=== PATIENT | female | born 1960 | race Caucasian/White ===

== ENCOUNTER 2020-04-16 13:57 | Outpatient (CLI) | payer MEDICARE, OTHER, SELFPAY ==
--- NOTE | ~2020-04-16 | CT_ITS ---
EXAMINATION: CTA brain DATE: 04/16/2020 15:11 INDICATION: Syncope and collapse. TECHNIQUE: Computed tomographic angiography (CTA) of the head was performed without and with 100 mL O mnipaque-350 intravenous contrast. Automated exposure control and iterative reconstruction technique were employed. The dose-length product was 1095.65 mGy-cm. Maximum intensity projection 3D reconstru ctions were created. Volume-rendered 3D reconstructions of the intracranial arteries were created by the technologist on a separate workstation. COMPARISON: None. FINDINGS: There is an old infarct in right frontal lobe. There is no intracranial hemorrhage, acute i nfarction, or abnormal intracranial mass lesion. The ventricles are normal in size. There is mild muc osal thickening in the paranasal sinuses. The mastoid air cells are normal. Left vertebral artery is dominant. There is no significant stenosis of basilar artery or the posterior cerebral arteries. Ther e is no significant stenosis of the intracranial internal carotid arteries or anterior or middle cere bral arteries. Anterior communicating artery and the posterior communicating arteries are normal. No aneurysm. IMPRESSION: 1. 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 2. No aneurysm or significant intracranial arterial stenosis. Reviewed, dictated and finalized at location A.
[2020-04-16 14:59] LABS: Estimated Glomerular Filt Rate > 60
--- NOTE | 2020-04-16 15:35 | ECG_ITS ---
Measurements Intervals [place] Rate: 69 P: 52 [place]: 163 QRS: 25 QRSD: 102 T: 64 QT: 378 QTc: 407 Interpretive Statements SINUS RHYTHM NORMAL ECG Electronically Signed On 04-16-2020 15:47:36 CDT by Angelo Crandall D.O.
[2020-04-16 16:26] LABS: Hematocrit 45.5 % (37.0-47.0); Hemoglobin 15.9 g/dL (12.0-15.0); Mean Corpuscular HGB Conc 34.9 g/dl (32-36); Mean Corpuscular Hemoglobin 31.7 pg (26-34); Mean Corpuscular Volume 90.8 fl (80-100); Mean Platelet Volume 8.3 fl (7.4-10.4); Platelet Count Result 309 k/mm3 (150-375); Red Blood Count 5.01 M/mm3 (4.2-5.4); Red Cell Distribution Width 12.3 % (11.5-14.5); White Blood Count 10.9 K/mm3 (4.5-10.0)
[2020-04-16 16:36] LABS: Alanine Aminotransferase 25 U/L (4-35); Albumin Level 4.5 g/dL (3.5-5.1); Alkaline Phosphatase 66 U/L (38-126); Anion Gap 10 mmol/L (8-16); Aspartate Amino Transferase 26 U/L (14-36); Bilirubin,Total 0.6 mg/dL (0.2-1.3); Blood Urea Nitrogen 13 mg/dL (7-17); Calcium 10.2 mg/dL (8.4-10.2); Carbon Dioxide 28 mmol/L (22-30); Chloride 98 mmol/L (98-107); Estimated Glomerular Filt Rate > 60; Glucose 122 mg/dL (65-105); Potassium 4.6 mmol/L (3.4-5.0); Sodium 136 mmol/L (137-145)
[2020-04-17 10:36] LABS: Erythrocyte Sedimentation Rate 8 mm/hr (0-20)
== END 2020-04-16 13:58 | disposition home or self-care (01) ==
PROVIDERS: PCP Internal Medicine; Visit Provider Nurse Practitioner
DX: R55 Syncope and collapse (principal); I10 Essential (primary) hypertension
CPT/HCPCS: 36415; 70496; 80053; 84443; 85027; 85652; 93005; Q9967

== ENCOUNTER 2020-04-18 10:32 | Outpatient (CLI) | payer MEDICARE, OTHER, SELFPAY ==
--- NOTE | ~2020-04-18 | MR_ITS ---
EXAMINATION: MR brain/brain stem wo/w con DATE: 04/18/2020 11:44 INDICATION: CVA. Dizziness. Generalized headaches. TECHNIQUE: Magnetic resonance imaging (MRI) of the brain and brainstem was performed without intraven ous contrast. Sequences included sagittal and axial T1-weighted SE, axial diffusion-weighted FS SE, a xial T2*-weighted GRE, axial T2-weighted FLAIR Propeller, and axial T2-weighted Propeller. Apparent d iffusion coefficient (ADC) maps were created. COMPARISON: CTA dated 04/16/2020. FINDINGS: Small chronic right frontal lobe infarctions. No acute intracranial infarction or hemorrhag e. Structures of the posterior fossa including 7/8th cranial nerve complexes. Orbits are symmetric wi thout disconjugate gaze. Pressures of the posterior fossa including 7/8th cranial nerve complexes. No abnormal contrast enhancement. No ventriculomegaly or midline shift. Structures of the posterior fos sa are unremarkable. Paranasal sinuses are unremarkable. IMPRESSION: 1. No acute intracranial abnormality. 2: Small chronic right frontal lobe infarction. Reviewed, dictated and finalized at location A.
[2020-04-18 11:17] LABS: Estimated Glomerular Filt Rate > 60
== END 2020-04-18 10:33 | disposition home or self-care (01) ==
LOC: ANHIMG 10:33
PROVIDERS: PCP Internal Medicine; Visit Provider Nurse Practitioner
DX: I63.9 Cerebral infarction, unspecified (principal); R42 Dizziness and giddiness; R51.9 Headache, unspecified; H53.8 Other visual disturbances
CPT/HCPCS: 70553; A9577

== ENCOUNTER 2020-05-01 12:35 | Outpatient (CLI) | payer MEDICARE, OTHER, SELFPAY ==
--- NOTE | 2020-05-01 12:48 | ECHO_ITS ---
Patient Info Name: Precious Person Age: 59 years : 1960 Gender: Female Ht: 68 in Wt: 260 lbs BSA: 2.43 m2 HR: 72 bpm BP: 139 / 95 mmHg Technical Quality: Good Exam Date: 05/01/2020 1:04 PM Exam Location: [facility] Patient Status: Outpatient Admit Date: 05/01/2020 Staff Ordering Physician: Joy Garcia NP Digital Photo Printer: Isauro Sanchez RDCS, RT Attending Provider: Joy Garcia NP Referring Physician: Radha ABEL; Exam Type: CA echo doppler color flow Study Info Indications R55 - Syncope and collapse Complete two-dimensional, color flow and Doppler transthoracic echocardiogram is performed. Strain analysis performed. Summary 1. Complete two-dimensional, color flow and Doppler transthoracic echocardiogram is performed. 2. Left ventricular chamber dimension is normal. 3. Left ventricular systolic function is normal, estimated at 60-65%. 4. The left ventricular diastolic function is normal. 5. E/e' 9 is minimally elevated. 6. Global longitudinal strain is normal at -17.6%. Left Ventricle E/e' 9 is minimally elevated. Global longitudinal strain is normal at -17.6%. Left ventricular chamber dimension is normal. Left ventricular systolic function is normal, estimated at 60-65%. The left ventricular diastolic function is normal. Right Ventricle Right ventricular chamber dimension is normal. Right ventricular systolic function is normal. Left Atria Left atrial chamber dimension is normal. Right Atria Right atrial chamber dimension is normal. Aortic Valve The aortic valve is trileaflet. There is no aortic valve stenosis. There is no aortic valve regurgitation. Pulmonic Valve There is no pulmonic regurgitation. Mitral Valve There is no mitral valve stenosis. There is no mitral valve regurgitation. Tricuspid Valve There is no tricuspid valve regurgitation. Pericardium/Pleural There is no pericardial effusion. Inferior Vena Cava Normal inferior vena cava with >50% collapse upon inspiration consistent with normal right atrial pressure, 5 mmHg. Aorta The aortic root size at the sinus of Valsalva is normal. Left Ventricular Outflow Tract Name Value Normal LVOT 2D LVOT Diameter 2.0 cm LVOT Doppler LVOT Peak Gradient 5 mmHg LVOT Mean Gradient 3 mmHg LVOT VTI 22 cm LVOT VTI/AV VTI Ratio 0.8 LVOT Stroke Volume 71 ml LVOT CO 5.3 l/min LVOT CI 2.2 l/min/m2 Mitral Valve Name Value Normal MV Doppler MV Decel [place] 408 cm/s2 MV PHT 60 ms MV Area (PHT) 3.7 cm2 4.0-5.0 MV Diastolic Function
--- NOTE | 2020-05-11 13:06 | P.PCNHOL_ITS ---
Holter/Event Monitor Holter/Event Monitor Date of procedure: 05/06/20 Procedure Type: 48 hour holter monitor Indications: Syncope Conclusion: 1. 48 hour holter monitor on 05/06/20. 2. Underlying rhythm is sinus rhythm. HR range 46-122 bpm; average HR 78 bpm. 3. There are 22 premature supraventricular complexes. No supraventricular tachycardia. 4. There are 230 premature ventricular complexes. No ventricular tachycardia. 5. No sinoatrial or atrioventricular blocks. No significant pauses greater than 2 seconds. 6. Patient reports rapid and hard heart beat, and dizziness which demonstrate s inus rhythm, HR range 71-85 bpm.
== END 2020-05-01 12:36 | disposition home or self-care (01) ==
PROVIDERS: PCP Internal Medicine; Visit Provider Nurse Practitioner
DX: R55 Syncope and collapse (principal)
CPT/HCPCS: 93225; 93226; 93306

== ENCOUNTER 2020-08-24 10:55 | Outpatient (CLI) | payer MEDICARE, OTHER, SELFPAY | END 2020-08-24 10:56 | disposition home or self-care (01) | LOC: ANHAUDASC 10:57 | PROVIDERS: PCP Internal Medicine; Visit Provider Otolaryngology | DX: H91.93 Unspecified hearing loss, bilateral (principal) | CPT/HCPCS: 92557; 92567 ==

== ENCOUNTER → 2021-11-22 12:44 | Outpatient (CLI) | payer MEDICARE, OTHER, SELFPAY ==
--- NOTE | ~2021-11-22 | MM_ITS ---
EXAMINATION: MM screening elizabeth BI w debbie HISTORY: Screening mammogram TECHNIQUE: Craniocaudal and mediolateral oblique 3-D tomosynthesis images were obtained and synthetic 2-D images were generated. CAD analysis was submitted and interpreted. COMPARISON: 11/23/2018 BREAST PARENCHYMAL COMPOSITION: There are scattered areas of fibroglandular density. FINDINGS: There is no suspicious mass, calcification, or architectural distortion to suggest malignan cy in either breast. There has been no suspicious interval change. IMPRESSION: 1. No mammographic evidence of malignancy. 2. Recommend routine screening mammography in one year. BI-RADS Category 1: Negative Reviewed, dictated and finalized at location A.
== END ==
PROVIDERS: PCP Internal Medicine; Visit Provider Internal Medicine
DX: Z12.31 Encounter for screening mammogram for malignant neoplasm of breast (principal)
CPT/HCPCS: 77063; 77067

== ENCOUNTER 2022-01-04 10:56 | Outpatient (RCR) | payer MEDICARE, OTHER, SELFPAY ==
[2022-01-04 14:42] VITALS: BP 153/82; PULSE 70; RESP 20; TEMP 36.4; O2SAT 96
[2022-01-04] MEDS: diphenhydrAMINE HCl CAP 25 MG CAPSULE PO (14:45)
[2022-01-04] MEDS: ACETAMINOPHEN 325 MG TABLET 650 MG PO (14:46)
[2022-01-04] MEDS: FAMOTIDINE 20 MG TABLET PO (14:46)
[2022-01-04] MEDS: BEBTELOVIMAB 175 MG/2 ML VIAL IV PUSH (15:06)
[2022-01-04 15:42] VITALS: BP 144/82; PULSE 66; O2SAT 97
== END 2022-01-04 16:00 ==
LOC: AMCINF 10:56
PROVIDERS: PCP Internal Medicine; Referring Provider Internal Medicine; Visit Provider Internal Medicine Hematology & Oncology
DX: U07.1 COVID-19 (principal); I10 Essential (primary) hypertension; J44.9 Chronic obstructive pulmonary disease, unspecified; E11.9 Type 2 diabetes mellitus without complications
CPT/HCPCS: A9270; M0222; Q0222

== ENCOUNTER 2022-09-05 12:33 | Outpatient (CLI) | payer MEDICARE, OTHER, SELFPAY | END 2022-09-05 12:34 | disposition home or self-care (01) | LOC: ANHGOSHLAB 12:41 | PROVIDERS: PCP Internal Medicine; Visit Provider Nurse Practitioner | DX: E11.69 Type 2 diabetes mellitus with other specified complication (principal) | CPT/HCPCS: 36415; 83036 ==

== ENCOUNTER 2023-02-16 10:24 | Outpatient (CLI) | payer MEDICARE, OTHER, SELFPAY ==
[2023-02-16 11:19] LABS: Basophils Absolute Auto 0.1 K/mm3 (0.0-0.1); Eosinophils Absolute Auto 0.4 K/mm3 (0-0.3); Hematocrit 44.1 % (37.0-47.0); Hemoglobin 15.3 g/dL (12.0-15.0); Immature Granulocyte Absolute 0.04 K/mm3 (0.00-0.031); Immature Granulocyte Percent A 0.4 % (0-0.5); Lymphocytes Absolute Auto 2.27 K/mm3 (0.9-3.2); Lymphocytes Percent Auto 23.5 % (18.3-44.2); Mean Corpuscular HGB Conc 34.7 g/dl (32-36); Mean Corpuscular Hemoglobin 32.1 pg (26-34); Mean Corpuscular Volume 92.5 fl (80-100); Mean Platelet Volume 8.4 fl (7.4-10.4); Monocytes Absolute Auto 0.8 K/mm3 (0.1-0.6); Monocytes Percent Auto 8.1 % (2.6-8.5); Neutrophils Absolute Auto 6.1 K/mm3 (1.3-6.7); Platelet Count Result 287 k/mm3 (150-375); Red Blood Count 4.77 M/mm3 (4.2-5.4); Red Cell Distribution Width 12.1 % (11.5-14.5); White Blood Count 9.6 K/mm3 (4.5-10.0)
[2023-02-16 11:41] LABS: Creatinine Urine 26.7 mg/dL
[2023-02-16 12:04] LABS: Hemoglobin A1C 5.7 % (<5.7)
[2023-02-16 13:30] LABS: Microalbumin Urine Random < 6.0 mg/L (0-16.7)
[2023-02-16 19:47] LABS: Alanine Aminotransferase 23 U/L (6-35); Albumin Level 4.2 g/dL (3.5-5.1); Alkaline Phosphatase 74 U/L (38-126); Anion Gap 9 mmol/L (8-16); Aspartate Amino Transferase 31 U/L (14-36); Bilirubin,Total 0.5 mg/dL (0.2-1.3); Blood Urea Nitrogen 13 mg/dL (7-17); Calcium 9.6 mg/dL (8.4-10.2); Carbon Dioxide 26 mmol/L (22-30); Chloride 101 mmol/L (98-107); Cholesterol 237 mg/dL (0-200); Estimated Glomerular Filt Rate > 60; Glucose 115 mg/dL (65-110); HDL Direct 57 mg/dL; Sodium 136 mmol/L (137-145); Triglycerides 151 mg/dL (<150)
[2023-02-16 19:58] LABS: LDL Cholesterol Direct 145 mg/dL
[2023-02-16 20:39] LABS: Vitamin D 25 Hydroxy 38.3 ng/mL
== END 2023-02-16 10:25 | disposition home or self-care (01) ==
PROVIDERS: PCP Internal Medicine; Visit Provider Nurse Practitioner
DX: E11.9 Type 2 diabetes mellitus without complications (principal); E55.9 Vitamin D deficiency, unspecified
CPT/HCPCS: 36415; 80053; 80061; 82043; 82306; 83036; 85025

== ENCOUNTER 2023-08-25 10:56 | Outpatient (CLI) | payer MEDICARE, OTHER, SELFPAY ==
[2023-08-25 13:03] LABS: Cholesterol 221 mg/dL (0-200); HDL Direct 72 mg/dL; Triglycerides 138 mg/dL (<150)
[2023-08-25 13:14] LABS: LDL Cholesterol Direct 130 mg/dL
[2023-08-25 13:27] LABS: Vitamin D 25 Hydroxy 52.6 ng/mL
[2023-08-25 14:07] LABS: Hemoglobin A1C 5.9 % (<5.7)
== END 2023-08-25 10:57 | disposition home or self-care (01) ==
LOC: ANHGOSHLAB 10:58
PROVIDERS: PCP Internal Medicine; Visit Provider Nurse Practitioner
DX: E11.9 Type 2 diabetes mellitus without complications (principal); E55.9 Vitamin D deficiency, unspecified; E78.5 Hyperlipidemia, unspecified
CPT/HCPCS: 36415; 80061; 82306; 83036

== ENCOUNTER 2024-01-05 15:36 | Outpatient (CLI) | payer MEDICARE, OTHER, SELFPAY ==
--- NOTE | ~2024-01-05 | MM_ITS ---
EXAMINATION: MM screening elizabeth BI w debbie HISTORY: Screening TECHNIQUE: Craniocaudal and mediolateral oblique 3-D tomosynthesis images were obtained and synthetic 2-D images were generated. CAD analysis was submitted and interpreted. COMPARISON: Comparison to multiple prior studies sequentially, with oldest reviewed study dated 12/2018. BREAST PARENCHYMAL COMPOSITION: Not dense: There are scattered areas of fibroglandular density. FINDINGS: There is no evidence of suspicious mass, calcification, or architectural distortion to sugg est malignancy in either breast. There has been no suspicious interval change. IMPRESSION: 1. No mammographic evidence of malignancy. 2. Recommend routine screening mammography in one year. BI-RADS Category 1: Negative Reviewed, dictated and finalized at location B.
== END 2024-01-05 15:37 ==
LOC: MICIMG 15:36
PROVIDERS: PCP Obstetrics & Gynecology; Visit Provider Nurse Practitioner
DX: Z12.31 Encounter for screening mammogram for malignant neoplasm of breast (principal)
CPT/HCPCS: 77063; 77067

== ENCOUNTER 2024-03-07 10:14 | Outpatient (CLI) | payer MEDICARE, OTHER, SELFPAY ==
[2024-03-07 13:40] LABS: Hematocrit 48.6 % (37.0-47.0); Hemoglobin 16.2 g/dL (12.0-15.0); Mean Corpuscular HGB Conc 33.3 g/dl (32-36); Mean Corpuscular Volume 95.9 fl (80-100); Platelet Count Result 276 k/mm3 (150-375); Red Blood Count 5.07 M/mm3 (4.2-5.4); Red Cell Distribution Width 12.6 % (11.5-14.5); White Blood Count 8.8 K/mm3 (4.5-10.0)
[2024-03-07 13:41] LABS: Basophils Absolute Auto 0.1 K/mm3 (0.0-0.1); Basophils Percent Auto 0.9 % (0.2-1.2); Eosinophils Absolute Auto 0.3 K/mm3 (0-0.3); Eosinophils Percent Auto 3.3 % (0-4.4); Immature Granulocyte Absolute 0.04 K/mm3 (0.00-0.031); Immature Granulocyte Percent A 0.5 % (0-0.5); Lymphocytes Absolute Auto 1.83 K/mm3 (0.9-3.2); Lymphocytes Percent Auto 20.7 % (18.3-44.2); Mean Platelet Volume 8.8 fl (7.4-10.4); Monocytes Absolute Auto 0.7 K/mm3 (0.1-0.6); Monocytes Percent Auto 7.4 % (2.6-8.5); Neutrophils Percent Auto 67.2 % (45.5-73.1)
[2024-03-07 13:43] LABS: Alanine Aminotransferase 19 U/L (6-35); Albumin Level 4.4 g/dL (3.5-5.1); Alkaline Phosphatase 63 U/L (38-126); Anion Gap 10 mmol/L (4-12); Aspartate Amino Transferase 51 U/L (14-36); Bilirubin,Total 0.8 mg/dL (0.2-1.3); Blood Urea Nitrogen 14 mg/dL (7-17); Calcium 9.7 mg/dL (8.4-10.2); Carbon Dioxide 29 mmol/L (22-30); Chloride 101 mmol/L (98-107); Cholesterol 195 mg/dL (0-200); Estimated Glomerular Filt Rate > 60; Glucose 139 mg/dL (65-110); HDL Direct 75 mg/dL; Potassium 4.7 mmol/L (3.4-5.0); Sodium 140 mmol/L (137-145); Triglycerides 146 mg/dL (<150)
[2024-03-07 13:54] LABS: LDL Cholesterol Direct 103 mg/dL
[2024-03-07 14:32] LABS: Vitamin D 25 Hydroxy 44.3 ng/mL
[2024-03-07 21:40] LABS: Hemoglobin A1C 5.8 % (<5.7)
== END 2024-03-07 10:15 | disposition home or self-care (01) ==
PROVIDERS: PCP Obstetrics & Gynecology; Visit Provider Nurse Practitioner
DX: E55.9 Vitamin D deficiency, unspecified (principal); E78.5 Hyperlipidemia, unspecified; E11.69 Type 2 diabetes mellitus with other specified complication
CPT/HCPCS: 36415; 80053; 80061; 82306; 83036; 85025

== ENCOUNTER 2024-03-29 13:31 | Outpatient (CLI) | payer MEDICARE, OTHER, SELFPAY ==
--- NOTE | ~2024-03-29 | MR_ITS ---
EXAMINATION: MR shoulder LT wo con DATE: 03/29/2024 14:13 INDICATION: Left shoulder pain. TECHNIQUE: Magnetic resonance imaging (MRI) of the left shoulder was performed without intravenous co ntrast. Sequences included axial PD-weighted FS FSE, coronal oblique PD-weighted FS FSE and T2-weight ed FS FSE, and sagittal oblique T2-weighted FS FSE and T1-weighted FSE. COMPARISON: None. FINDINGS: Coracoacromial arch: The acromion undersurface is curved in morphology with anterior hook (type III). There is severe acro mioclavicular joint osteoarthritis. There is a physiologic volume of fluid in subacromial/subdeltoid bursa. Rotator cuff: There is mild supraspinatus and infraspinatus tendinopathy. Teres minor tendon is normal. Subscapular is tendon is normal. There is no asymmetric fatty atrophy of the rotator cuff muscle bellies. Biceps tendon and glenoid labrum: Biceps tendon is in bicipital groove. There is mild intra-articular biceps tendinopathy. There is deg enerative tearing of the glenoid labrum (SLAP tear). Fluid: There is a moderate-sized glenohumeral joint effusion. Bones/cartilage: There is partial-thickness cartilage loss of glenoid, deep at the central and posterior articular desiree face with subchondral edema-like marrow signal intensity. There is partial-thickness cartilage loss o f humeral head, deep posterior superomedially. IMPRESSION: 1. Moderate glenohumeral joint chondrosis. 2. Severe acromioclavicular joint osteoarthritis. 3. Mild rotator cuff tendinopathy. No tear. 4. Moderate-sized glenohumeral joint effusion. 5. Mild intra-articular biceps tendinopathy. Reviewed, dictated and finalized at location A.
== END 2024-03-29 13:32 | disposition home or self-care (01) ==
LOC: GOSHIMG 13:32
PROVIDERS: PCP Internal Medicine; Visit Provider Nurse Practitioner
DX: M19.012 Primary osteoarthritis, left shoulder (principal); M25.412 Effusion, left shoulder; M75.22 Bicipital tendinitis, left shoulder
CPT/HCPCS: 73221

== ENCOUNTER 2024-04-03 10:31 | Outpatient (CLI) | payer MEDICARE, OTHER, SELFPAY ==
--- NOTE | 2024-04-23 18:52 | WPDSLEEPSTUD ---
Sleep Study Date of Study: 04/03/24 Ordering Provider: Marlee Pro NP Interpreting Physician: Tereza Quezada DO Sleep Study Type: Polysomnogram Height: 1.73 m Weight: 105.687 kg Body Mass Index: 35.4 Neck Circumference (inches): 16 [place]: 8 Reason for Sleep Study Snoring, daytime hypersomnia Sleep History The patient is a 63-year-old female who had a sleep study ordered by her primary care for evaluation of sleep apnea.? The patient occasionally awakens from sleep short of breath.? She occasionally awakens at night with heartburn, belching or cough.? She frequently snores and is occasionally loud enough that others complain.? She constantly has trouble sleeping when she has a cold.? She rarely wakes up gasping for air throughout the night.? She rarely has breathing problems at night observed by herself or others.? She constantly sweats excessively at night.? She occasionally has heart palpitations or irregular heartbeats during the night.? She frequently falls asleep during the day but never while driving.? She denies sleep paralysis and cataplexy.? She denies having trouble at school or work due to sleepiness.? She rarely experiences vivid dreamlike scenes upon awakening or falling asleep.? She rarely feels afraid of going to sleep.? She rarely has nightmares.? She occasionally remembers her dreams.? She frequently has thoughts racing through her mind.? She occasionally feels sad, depressed and anxious.? She frequently has muscular tension.? She rarely notices parts of her body jerk.? She occasionally kicks during the night.? She frequently has crawling and aching feelings in her legs and frequently has leg pain during the night.? She denies grinding her teeth during sleep.? She rarely awakens with morning jaw pain.? She is constantly bothered by pain during the day and frequently awakened by pain during the night.? She constantly wakes up feeling stiff in the morning.? She constantly wakes up with sore or achy muscles.? She constantly wakes up with pain in the neck, spine and other joints.? She goes to bed between 8-10 p.m. on weekdays and between 10:00 p.m. to midnight on the weekends.? The amount of time it takes for her to fall asleep is variable.? She wakes up 4-6 times throughout the night to urinate, eat or surf the Internet.? It can take a few minutes up to an hour to fall back asleep.? She wakes up between 6:00 a.m. to noon on weekdays and at 9:00 a.m. on the weekends.? She typically gets 4-10 hours of sleep per night.? She will stay in bed for 1-2 hours after waking up in the morning.? She currently lives with her .? She denies consuming any caffeinated beverages within 2 hours of bedtime.? She denies engaging in physical exercise before bedtime.? She will read watch television before falling asleep.? She will take naps in the afternoon or the evening and they are refreshing.? She consumes 1 caffeinated beverage per day.? She quit smoking cigarettes 4 years ago.? She consumes 3-4 alcoholic beverages per day.? She currently uses medicinal cannabis. [facility] Past Medical History Medical History Anxiety COPD (chronic obstructive pulmonary disease) Crohn disease CVA (cerebral vascular accident) Depression E coli infection 2012 Essential hypertension Fibromyalgia GERD (gastroesophageal reflux disease) Hypercalcemia Hypertension Post-menopausal Prediabetes Ulcerative proctitis Surgical History Surgical History H/O tubal ligation 1990 Family History Family History Mother Diabetes mellitus CAD (coronary artery disease) Sibling Hypertension Diabetes mellitus Breast cancer sister-68 Father Hypertension Cancer Social History Social History Social History: Caffeine-very little Years smoked: 49 Smoking status: Former smoker Smoking end date: 06/19/17 Alcohol intake: current Alcohol use details: Pt occasionally drinks Substance use: current Substance use type: marijuana Last use: 05/03/19 Do You Feel Safe in your Home?: Yes Lack of Transportation: No Lack of Food: Never True Current Housing: I Have Housing Concerned About Future Housing: No Difficulty Paying Gas/Electric Bills: No Difficulty Paying for Meds: No Currently Unemployed: No Education: Trade/Vocational Certificate Difficulty w/ Childcare or Family Care: No Medications Home Medications Medication Instructions Recorded Confirmed Type aspirin 81 mg tablet,delayed 81 mg PO DAILY 04/22/20 03/13/24 History release (Adult Low Dose Aspirin) flaxseed 1,000 mg capsule 1,200 mg PO DAILY 02/23/23 03/13/24 History cholecalciferol (vitamin D3) 250 250 mcg PO DAILY #90 caps 04/17/23 03/13/24 Rx mcg (10,000 unit) capsule amlodipine 5 mg tablet 5 mg PO DAILY #90 tabs 10/30/23 03/13/24 Rx fluticasone fur. 100 mcg-umeclid See Rx Instructions .Route 11/21/23 03/13/24 Rx 62.5 mcg-vilant 25 mcg .COMPLEX #60 ea inhalat.powder (Trelegy Ellipta) losartan 50 mg tablet See Rx Instructions .Route 12/04/23 03/13/24 Rx .COMPLEX #90 tabs montelukast 10 mg tablet See Rx Instructions .Route 12/04/23 03/13/24 Rx .COMPLEX #90 tabs albuterol sulfate 90 mcg/actuation 2 puff inhalation Q4-6H PRN 02/12/24 03/13/24 Rx aerosol inhaler (Ventolin HFA) shortness of breath or wheezing #18 grams melatonin 5 mg capsule mg PO 03/13/24 03/13/24 History sertraline 100 mg tablet 100 mg PO DAILY 03/13/24 03/13/24 History metoprolol tartrate 50 mg tablet See Rx Instructions .Route 03/14/24 Rx .COMPLEX #180 tabs pantoprazole 20 mg tablet,delayed See Rx Instructions .Route 03/14/24 Rx release .COMPLEX #90 tabs evolocumab 140 mg/mL subcutaneous 140 mg subcut .H9yqamt #2 mL 04/19/24 Rx pen injector (Felisha Whitley) Sleep Procedure A full night polysomnogram using the [employer] Sleepbigtincan multi-channel system recorded the standard physiologic parameters including EEG, EOG, submentalis EMG, anterior tibialis EMG, EKG, body position, nasal and oral airflow using nasal pressure sensor and thermistor.? Respiratory parameters of chest and abdominal movements were recorded with Respiratory Inductance Plethysmography belts. Oxygen saturation was recorded by pulse oximetry. Video monitoring was also performed. Sleep stages, periodic limb movements, and EEG arousals were scored in 30 second epochs according to the criteria of the AASM Scoring Manual. The Apnea-Hypopnea Index was calculated using [facility] guidelines for definition of hypopnea with 4% O2 desaturations while scoring respiratory events. Sleep Architecture The total recording time was 441.4 minutes.? The total sleep time was 264.5 minutes. Sleep latency was 138.7 minutes. REM latency was 233.5 minutes. Sleep efficiency was 59.9%. The patient had 19 awakenings for an awakening index of 4.3. Wake after sleep onset time was 38.0 minutes. The patient spent 47.5 minutes, 18.0% of total sleep time in Stage N1. The patient spent 116.5 minutes, 44.0% in Stage N2. The patient spent 59.0 minutes, 22.3% in Stage N3. The patient spent 41.5 minutes, 15.7% in Stage REM sleep. Respiratory Analysis The patient had 34 hypopneas and 3 obstructive apneas for an overall Apnea Hypopnea Index of 8.4. The REM Apnea Hypopnea Index was 1.4. The NREM Apnea Hypopnea Index was 9.7. The patient had a Central Apnea Hypopnea Index of 0. There was no evidence of Henry-Fritz Respirations. Arousals There were 95 total arousals for an arousal index of 21.6. There were 12 spontaneous arousals for an index of 2.7. There were 45 arousals due to respiratory events for an index of 10.2. There were 30 arousals due to periodic limb movements for an index of 6.8.? There were 8 arousals due to isolated limb movements for an index of 1.8. Periodic Limb Movements The patient had 23 isolated limb movements with an index of 5.2. The patient had 187 periodic limb movements with an index of 42.4, which is elevated (normal < 5). Patient had a total of 210 limb movements with a total limb movement index of 47.6. Oximetry Data The patient had an average oxygen saturation of 90.9% in sleep with a minimum oxygen saturation of 86.0% and a maximum oxygen saturation of 97.0%. The patient had 41 oxygen desaturations that were 4% or greater resulting in an Oxygen Desaturation Index of 9.3.? The patient spent 4.6 minutes, 1.1% of total sleep time with an oxygen saturation below 88%. Snoring Profile Mild snoring was present intermittently throughout the study. Cardiac Profile The EKG showed normal sinus rhythm. No arrhythmias or PVCs were seen. The patient had an average pulse rate of 59.7 bpm with a minimum pulse of rate of 46.0 bpm and a maximum pulse rate of 79.0 bpm.? EEG Profile No signs of seizure activity seen. Assessment and Plan Assessment and Plan (1) CESAR (obstructive sleep apnea): Code(s): G47.33 - Obstructive sleep apnea (adult) (pediatric) Status: Acute Assessment and Plan: The patient had an overall AHI of 8.4 with desaturation down to 86%. This is consistent with mild sleep apnea. Due to the patient's hypertension, she qualifies for PAP therapy. I recommend that the patient be prescribed AutoPAP 5-15 cm H2O, CPAP mask/filters/tubing and heated humidity. This should be used with all episodes of sleep.? Compliance should be reviewed within 31-90 days of starting therapy for usage greater than 4 hours per night greater than 70% of the nights. The patient should be asked about symptoms such as?excessive daytime sleepiness, quality of sleep, decreased nocturia, increased?mental functioning such as memory, mood, and concentration. (2) PLMD (periodic limb movement disorder): Code(s): G47.61 - Periodic limb movement disorder Status: Acute Assessment and Plan: The patient had a significant number of limb movements during the study with the majority being periodic in nature. The patient's sleep history is highly suggestive of Restless Leg Syndrome. I recommend that the patient have a serum ferritin drawn for evaluation of iron deficiency anemia. If the patient has a serum ferritin less than 75 ng/mL, I recommend starting a daily iron supplement and a Vitamin C supplement for better absorption. If the serum ferritin is greater than 75 ng/mL, I recommend starting a dopamine agonist and titrating the dose until symptoms resolve. There are nonpharmacological methods to treat limb movements including daily exercise, stretching calf muscles before bed, avoiding excessive amounts of caffeine and alcohol, vitamin B supplementation, magnesium lotion massaged into legs before bed, and use of a weighted blanket. Data The data obtained during this sleep study is adequate for interpretation. Certification This sleep study has been reviewed by a board certified sleep medicine physician.
[2024-04-24 08:14] VITALS: BMI 35.4
== END 2024-04-04 07:00 | disposition home or self-care (01) ==
PROVIDERS: PCP Internal Medicine; Visit Provider Nurse Practitioner
DX: G47.9 Sleep disorder, unspecified (principal); G47.33 Obstructive sleep apnea (adult) (pediatric); G47.61 Periodic limb movement disorder
CPT/HCPCS: 95810

== ENCOUNTER 2024-09-03 10:42 | Outpatient (CLI) | payer MEDICARE, SELFPAY ==
--- OUTSIDE RECORDS SUMMARY | 2024-09-03 12:06 | XMS_ITS | Clinical Summary ---
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 [employer] Gender Identity Not on file Sexual Orientation Not on file Plan of Treatment Health Maintenance Due Date Last Done Comments Hepatitis C Virus (HCV) Screening 1960 TdaP Immunization 1960 Pap Smear 1982 Cervical Cancer Screening (CCS) 1991 HPV/Cotest 1991 Colonoscopy 2006 Colorectal Cancer Screening 2006 Cologuard 2011 Immunochemical Fecal Occult Blood 2011 Mammogram 2011 Zoster Immunization (1 of 2) 2011 Pneumococcal Immunization (50+ years) (3 of 3 - PCV20 or PCV21) 04/15/2023 04/15/2018, 04/10/2017 Influenza Immunization (#1) 2024 09/0 01/2020, 03/12/2019, 04/15/2018, Additional history exists SARS-COV-2 Immunization ( - season) 2024 Respiratory Syncytial Virus (RSV) Immunization (Adult) (1 - 1-dose 75+ series) 2036 Pneumococcal Immunization Combined Discontinued 04/15/2018, 04/10/2017 Hepatitis B Immunization Aged Out No longer eligible based on patient's age to complete this topic Meningococcal Immunization (ACWY) Aged Out No longer eligible based on patient's age to complete this topic Rotavirus Immunization Aged Out No lo nger eligible based on patient's age to complete this topic
--- OUTSIDE RECORDS SUMMARY | 2024-09-03 12:07 | XMS_ITS | Clinical Summary ---
Author Organization [facility] [place] Address [address] [place] [address] Care Team Providers Care Take Down Sorter Name Role Phone Donovan Patel MD Primary Care Provider [phone] Source Comments [facility],non-owned Affiliates and Associated Physician Practices is amultiple site organization consisting of ambulatory clinics and hospital sitesin [place], [place], [place] and [place]. This disclosure is being madepursuant to the Care Everywhere program and may not contain all information available regarding this patient. Last updated 18.[facility] Allergies No known active allergies Medications * Be aware that medications may not be up to date on this document. Alwaysverify current medications with the patient. Medication Sig Dispensed Refills Start Date End Date Status mesalamine EC (LIALDA) 1.2 GM tablet Take 2.4 g by mouth daily with breakfast. Active gabapentin (NEURONTIN) 300 MG tablet Take 300 mg by mouth 3 times daily. Active amlodipine (NORVASC) 5 MG tablet Take 5 mg by mouth daily. Active lisinopril (PRINIVIL; ZESTRIL) 10 MG tablet Take 10 mg by mouth daily. Active Hydrocortisone 2 % LOTN by Apply externally route. Active cyclobenzaprine (FLEXERIL) 10 MG tablet Take 10 mg by mouth 3 times daily as needed. Active furosemide (LASIX) 20 MG tablet Take 20 mg by mouth once daily. Active metoprolol succinate XL 24hr (TOPROL XL) 50 MG tablet Take 50 mg by mouth once daily. Active desvenlafaxine SR 24hr (PRISTIQ) 50 MG tablet Take 50 mg by mouth once daily. Active ALPRAZolam (XANAX) 0.25 MG tablet Take 0.25 mg by mouth 3 times daily as needed. Active ezetimibe (ZETIA) 10 MG tablet Take 10 mg by mouth once daily. Active clindamycin (CLEOCIN-T) 1 % gel Apply to affected area 2 times daily. Apply to affected area after shower or bath daily 30 g 2 06/04/2012 Active Active Problems Problem Noted Date Diagnosed Date Breast inflammation 12/16/2009 Vaginal cyst 12/16/2009 Family History Medical History Relation Name Comments Hypertension Brother 6 Hypertension Brother 7 Hypertension Brother 8 Diabetes Brother 9 Cancer Father Prostrate Hypertension Father CAD (Coronary Artery Disease) Mother Diabetes Mother Diabetes Sister 2 Relation Name Status Comments Brother 1 Alive Brother 2 Alive Brother 3 Alive Brother 4 Alive Brother 5 Alive Brother 6 Brother 7 Brother 8 Brother 9 Father (Age 80s) prostate cancer Mother (Age 83) unknown Sister 1 Alive Sister 2 Social History Tobacco Use Types Packs/Day Years Used Date Smoking Tobacco: Every Day Cigarettes 0.5 40 Alcohol Use Standard Drinks/Week Comments Yes 5 (1 standard drink = 0.6 oz pur e alcohol) 1-2 x week Sex and Gender Information Value Date Recorded Sex Assigned at Not on file Gender Identity Not on file Sexual Orientation Not on file Last Filed Vital Signs Vital Sign Reading Time Taken Comments Blood Pressure 118/84 06/04/2012 11:07 AM EXPENSE ANALYST Pulse 80 06/04/2012 11:07 AM EXPENSE ANALYST Temperature - - Respiratory Rate 16 06/04/2012 11:07 AM EXPENSE ANALYST Oxygen Saturation - - Inhaled Oxygen Concentration - - Weight 105.7 kg (233 lb) 06/04/2012 11:07 AM EXPENSE ANALYST Height 172.7 cm (5' 8 ) 06/04/2012 11:07 AM EXPENSE ANALYST Body Mass Index 35.43 06/04/2012 11:07 AM EXPENSE ANALYST Plan of Treatment Health Maintenance Due Date Last Done Comments COLOGUARD (AGES 45-75) - COLON CA SCREENING 1961 COLON MONITORING 1961 COLONOSCOPY - COLON CA SCREENING 1961 CT COLONOGRAPHY - COLON CA SCREENING 1961 Colorectal Cancer Screening 1961 FIT - COLON CA SCREENING 1961 FLEX SIG - COLON CA SCREENING 1961 LIPID TESTING 1961 MEDICARE AWV 12 MONTHS 1961 HIV SCREENING 1976 HEPATITIS C SCREENING 06/11/1979 DTAP/TDAP/TD VACCINES (1 - Tdap) 1980 PNEUMOCOCCAL VACCINE 50+ (1 of 2 - PCV) 1980 PNEUMOCOCCAL VACCINE (1 of 2 - PCV) 1980 ZOSTER VACCINE (1 of 2) 2011 MAMMOGRAM 06/05/2014 06/05/2012, 05/19, 05/31/2011, Additional history exists PAP SMEAR 06/04/2015 06/04/2012, 05/19, 06/03/2011, Additional history exists COVID-19 VACCINE ( - season) 2024 INFLUENZA VACCINE (#1) 2024 DEPRESSION SCREENING 06/19/2024 Respiratory Syncytial Virus (RSV) Vaccine Pt: or over 60 yrs (1 - 1-dose 75+ series) 2036 HEPATITIS B VACCINE Aged Out No longe r eligible based on patient's age to complete this topic HIB VACCINE Aged Out No longer eligi ble based on patient's age to complete this topic HPV VACCINE Aged Out No longer eligi ble based on patient's age to complete this topic MENINGOCOCCAL (Group B) VACCINE SHARED DECISION-MAKING Aged Out No longer eligible based on patient's age to complete this topic MENINGOCOCCAL GROUPS A/C/Y/W VACCINE Aged Out No longer eligible based on patient's age to complete this topic Procedures Procedure Name Priority Date/Time Associated Diagnosis Comments MAMMOGRAPHY ORDER Routine 06/05/2012 PAP IGP CERVICAL CANCER AND CT/NG SCREENING Routine 06/04/2012 11:35 AM EXPENSE ANALYST Well woman exam with routine gynecological exam from Last 3 Months or Most Recently Relevant to Health Maintenance Results * MAMMOGRAPHY ORDER (06/05/2012) Anatomical Region Laterality Modality Other Dali Anders MOTORBOAT OPERATOR-COLORIST FORMULATOR MAMMO ORDERA BLES * PAP IGP CERVICAL CANCER AND CT/NG SCREENING (PO REF LAB) (06/04/2012 11:35 AM EXPENSE ANALYST) Age Gdln ACOG Testing 30-65 [facility] ACCOUNT BILL MICROSCOPIC CYTOLOGIC EXAMINATION OF SMEAR OF SPECIMEN FROM FEMALE GENITAL TRACT PREPARED USING PAPANICOLAOU TECHNIQUE / Unknown 06/04/2012 11:35 AM EXPENSE ANALYST 06/05/2012 2:21 AM EXPENSE ANALYST Narrative [facility] ACCOUNT BILL - 06/08/2012 2:08 PM EXPENSE ANALYST No. of containers..01 CYTYC Thin Prep Vial Resulting Agency Comment [facility] [address] [place] [id number] Dali Anders MOTORBOAT OPERATOR-COLORIST FORMULATOR LAB - PATHOL OGY/CYTOLOGY ORDERABLES [facility] ACCOUNT BILL from Last 3 Months or Most Recently Relevant to Health Maintenance Care Teams Take Down Sorter Relationship Specialty Start Date End Date Donovan Patel MD [address] [place] [address] [address] [place] [address] [facility] - General 04/10/18
--- OUTSIDE RECORDS SUMMARY | 2024-09-03 12:07 | XMS_ITS | Patient Health Record ---
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 Name Role Phone Carlos Swann DO Primary Care Provider Mini Madrigal Unavailable [phone] Migration, Provider Unavailable Unavailable Allergies No Known Allergies Reason For Referral No Information Medications Medication SIG (Take, Route, Frequency, Duration) Notes Start Date End Date Status Sertraline HCl 100 MG 1 tablet Oral Once a day for 90 days total 150 mg daily Active Repatha SureClick 140 mg/mL Subcutaneous 09/07/2023 Active ProAir HFA 108 (90 Base) MCG/ACT Inhalation 09/07/2023 Active Fluticasone Propionate Diskus 50 MCG/ACT Inhalation *Reorder from Needle HR for eRx and Interaction Alerts* 09/07/2023 Active VITAMIN D3 2,000 UNIT-FOLIC ACID 1 MG TABLET *Reorder from Needle HR for eRx and Interaction Alerts* 09/07/2023 Active Losartan Potassium 50 MG Oral 09/07/2023 Active Pantoprazole Sodium 20 MG Oral 09/07/2023 Active amLODIPine Besylate 5 MG Oral 09/07/2023 Not-Taking Metoprolol Tartrate 50 MG Oral 09/07/2023 Active Jardiance 10 MG Oral 09/07/2023 Not -Taking amLODIPine Besylate 10 MG Oral 09/07/2023 Active ALPRAZolam 0.25 MG Oral 09/07/2023 Not-Taking Montelukast Sodium 10 MG Oral 09/07/2023 Active Cyclobenzaprine HCl 10 MG Oral 09/07/2023 Not-Taking Trelegy Ellipta 100-62.5-25 mcg Inhalation *Pick strength-form from Needle HR for eRX* 09/07/2023 Active Ezetimibe 10 MG Oral 09/07/2023 Not -Taking Immunizations Vaccine Route Administration Date Status Comme nts Influenza virus vaccine, quadrivalent (IIV4), split virus, 0.25 mL dosage Unknown 04/19/2018 Administered Influenza virus vaccine, quadrivalent (IIV4), split virus, 0.25 mL dosage Unknown 03/19/2019 Administered Influenza virus vaccine, quadrivalent (IIV4), split virus, 0.25 mL dosage Unknown 03/19/2021 Administered Influenza virus vaccine, quadrivalent (IIV4), split virus, 0.25 mL dosage Unknown 03/16/2022 Administered Influenza, injectable, MDCK, preservative free Unknown 04/10/2017 Administered Influenza, injectable, MDCK, preservative free Unknown 04/15/2018 Administered Influenza, injectable, MDCK, preservative free Unknown 03/12/2019 Administered Influenza, unspecified formulation Unknown 04/06/2023 A dministered Novel [id number], preservative free Unknown 04/12/2016 Administered Novel [id number], preservative free Unknown 02/25/2020 Administered Pfizer Biontech Covid-19 Vac cine 2nd dose Unknown 08/20/2020 Administered Pfizer Biontech Covid-19 Vac cine 2nd dose Unknown 09/08/2020 Administered Pfizer Biontech Covid-19 Vac cine 2nd dose Unknown 03/26/2021 Administered Pfizer Biontech Covid-19 Vac cine 2nd dose Unknown 11/22/2021 Administered Pfizer Biontech Covid-19 Vac cine 2nd dose Unknown 03/16/2022 Administered Pfizer Biontech Covid-19 Vac cine 2nd dose Unknown 04/06/2023 Administered Pneumococcal conjugate PCV 13 Unknown 04/10/2017 Admini stered Pneumococcal polysaccharide PPV23 Unknown 04/15/2018 Ad ministered RSV-MAb (Respiratory syncyti al virus immune globulin) Unknown 08/08/2023 Administered Tdap Unknown 03/16/2022 Administered Tdap Unknown 04/06/2023 Administered Zoster Unknown 08/08/2023 Administered Social History Tobacco Use: Social History Observation Description Date Details (start date - stop date) Former Smoker NA - NA Sex Assigned At : Social History Observation Description Sex Assigned At Female Household Question Answer Notes Marital status: Number of adults in household: 2 Sexual History Question Answer Notes Had sex in the past 12 months (vaginal, oral, or anal)? Yes with Men only Tobacco Control (Standard) Question Answer Notes Tobacco use: Former smoker Additional Findings: Tobacco non-user Current no nsmoker AUDIT-C (Standard) Question Answer Notes Did you have a drink contain ing alcohol in the past year? Yes How often did you have six o r more drinks on one occasion in the past year? 2 to 3 times per week (3 points) How many drinks did you have on a typical day when you were drinking in the past year? 3 or 4 drinks (1 point) How often did you have a dri nk containing alcohol in the past year? 2 to 3 times a week (3 points) Points 7 Interpretation Positive Problems Problem Type SNOMED Code ICD Code Onset Dates Problem Status W/U Status Risk Notes Problem Cannabis dependence (79766907) Cannabis dependence, uncomplicated (F12.20) 08/24/19 23 Active confirmed Problem Mild recurrent major depression (15241661) Major depressive disorder, recurrent, mild (F33.0) 09/07/19 24 Active confirmed Problem Generalized anxiety disorder (77954403) Generalized anxiety disorder (F41.1) 09/07/19 24 Active confirmed Problem Posttraumatic stress disorder (51850193) Post-traumatic stress disorder, chronic (F43.12) 09/07/19 24 Active confirmed Problem Insomnia (402117438) Insomnia due to medical condition (G47.01) 09/07/19 24 Active confirmed Problem 91530987 Primary hypertension (I10) Active confirmed Vital Signs Heart Rate 71 /min 06/18/2024 Height-cm 172.72 cm 06/18/2024 Blood pressure diastolic 80 mm Hg 06/18/2024 Weight-kg 104.87 kg 06/18/2024 Height 68.00 in 06/18/2024 Blood pressure systolic 119 mm Hg 06/18/2024 Weight 231.2 lbs 06/18/2024 BMI 35.15 kg/m2 06/18/2024 Encounters Encounter Location Date Provider Diagnosis [facility] [employer] [facility] [address] [address] 09/07/2023 Mini Bryant 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 Z79.899 ; Major depressive disorder, recurrent, mild F33.0 ; Post-traumatic stress disorder, chronic F43.12 ; Generalized anxiety disorder F41.1 ; Other amnesia R41.3 and Insomnia due to medical condition G47.01 [facility] [employer] [facility] [address] [address] 06/18/2024 Mini Bryant Major depressive disorder, recurrent, mild F33.0 ; Generalized anxiety disorder F41.1 ; Insomnia due to medical condition G47.01 ; Post-traumatic stress disorder, chronic F43.12 ; Cannabis dependence, uncomplicated F12.20 and Primary hypertension I10 [facility] [employer] [facility] [address] [address] 09/04/2023 Provider Migration [facility] [place], [facility] [address] [address] 10/02/2023 Provider Migration [facility] [place], [facility] [address] [address] 10/27/2023 Provider Migration [facility] [place], [facility] [address] [address] 11/04/2023 Provider Migration [facility] [place], [facility] [address] [address] 11/05/2023 Provider [employer] [facility] [place], [facility] [address] [address] 05/30/2024 Mini Bryant [facility] [employer] [facility] [address] [address] 05/30/2024 Mini Bryant [facility] [place], [facility] [address] [address] 08/02/2024 Mini Bryant Major depressive disorder, recurrent, mild F33.0 Assessments Encounter Date Diagnosis (ICD Code) Assessment Notes Treatment Notes Treatment Clinical Notes Section Notes 08/02/2024 Major depressive disorder, recurrent, mild (ICD-10 - F33.0) 09/07/2023 Major depressive disorder, recurrent, mild (ICD-10 - F33.0) 09/07/2023 Generalized anxiety disorder (ICD-10 - F41.1) 09/07/2023 Post-traumatic stress disorder, chronic (ICD-10 - F43.12) 09/07/2023 Insomnia due to medical condition (ICD-10 - G47.01) 09/07/2023 Other amnesia (ICD-10 - R41.3) 09/07/2023 Other halfway (current) drug therapy (ICD-10 - Z79.899) 06/18/2024 Major depressive disorder, recurrent, mild (ICD-10 - F33.0) Presently taking Sertraline 100 mg daily, 1. depression Continue to have depression and anxiety feel Sertraline works for her and will try to increase Sertraline 150 mg daily Sertraline 150 mg daily 2. Anxiety Sertraline 150 mg daily 3. Insomnia sleep hygiene 4. PTSD stable 5. Cannabis use Recommend decrease/stop cannabis use as it can negatively impact mood, motivation, anxiety, sleep, focus/concentrat ion/memory (vigilance, elasticity, processing and attention); can also contribute to development of psychosis. http_s://www.nim h.nih.gov/health /topics/mental-h ealth-medication s http_s://www.nam i.org/About-Ment al-Illness/Treat ments/Mental-Hea lth-Medications Recommend decrease/stop cannabis use as it may be negatively impacting mood, motivation, anxiety, sleep, focus; can also contribute to development of psychosis Cannabis/marijua na information: http_s://sindi. h.gov/publicatio ns/drugfacts/can nabis-marijuana http_s://www.Baitianshi/can wjedx-nbl-ciaaco ua-ygsiyrsol-zlq d/ http_s://www.nam i.org/About-Ment al-Illness/Menta i-Wydqxk-Prlyhzx ons http_s://psychce ntral.com/depres bel/the-cogniti ut-picacrcv-kw-d epression#treatm ents http__s://www.ni .nih.gov/healt h/topics/mental- health-medicatio ns http__s://www.na mi.org/About-Men tñoo-Illness/Vicki tments/Mental-He alth-Medications educated on all medications, benefits, side effects and risk, and educated on depression, anxiety, and ADHD, mood d/o and educated on compliance of medications, metabolic and movement d/o education appointment's, continue therapy discussion with patient about course of treatment and patient instructions. education on serotonin syndrome educated on all medications, benefits, side effects and risk, and educated on depression, anxiety, and ADHD, mood d/o and educated on compliance of medications, metabolic and movement d/o education appointment is, continue therapy discussion with patient about course of treatment and patient instructions. education on serotonin syndrome SSRI/SNRI side effects discussed including but not limited to, gastric upset, nausea, vomiting, diarrhea and/or constipation, weight changes, sexual side effects including loss of libido, increased suicidal thoughts/behavio rs in children and young adults, and serotonin syndrome. Medication Management and Follow-Up - Plan: - Schedule follow-up appointments every 1-3 months to monitor the patient's response to the medication regimen. - Reinforce the importance of avoiding recreational drug use due to potential neurotoxicity and interactions with prescribed medications. 06/18/2024 Generalized anxiety disorder (ICD-10 - F41.1) Presently taking Sertraline 100 mg daily, 1. depression Continue to have depression and anxiety feel Sertraline works for her and will try to increase Sertraline 150 mg daily Sertraline 150 mg daily 2. Anxiety Sertraline 150 mg daily 3. Insomnia sleep hygiene 4. PTSD stable 5. Cannabis use Recommend decrease/stop cannabis use as it can negatively impact mood, motivation, anxiety, sleep, focus/concentrat ion/memory (vigilance, elasticity, processing and attention); can also contribute to development of psychosis. http_s://www.nim h.nih.gov/health /topics/mental-h ealth-medication s http_s://www.nam i.org/About-Ment al-Illness/Treat ments/Mental-Hea lth-Medications Recommend decrease/stop cannabis use as it may be negatively impacting mood, motivation, anxiety, sleep, focus; can also contribute to development of psychosis Cannabis/marijua na information: http_s://sindi.ni h.gov/publicatio ns/drugfacts/can nabis-marijuana http_s://www.Baitianshi/can dsihf-pdu-ucvshs vi-dchnbliab-tri d/ http_s://www.nam i.org/About-Ment al-Illness/Menta y-Lvkwdq-Dhhrjln ons http_s://psychce Baitianshi.com/karl staples/the-cogniti jl-dhfoicnw-it-d epression#treatm ents http__s://www.[facility].nih.gov/healt h/topics/mental- health-medicatio ns http__s://www.na mi.org/About-Men toño-Illness/Vicki tments/Mental-He alth-Medications educated on all medications, benefits, side effects and risk, and educated on depression, anxiety, and ADHD, mood d/o and educated on compliance of medications, metabolic and movement d/o education appointment's, continue therapy discussion with patient about course of treatment and patient instructions. education on serotonin syndrome educated on all medications, benefits, side effects and risk, and educated on depression, anxiety, and ADHD, mood d/o and educated on compliance of medications, metabolic and movement d/o education appointment is, continue therapy discussion with patient about course of treatment and patient instructions. education on serotonin syndrome SSRI/SNRI side effects discussed including but not limited to, gastric upset, nausea, vomiting, diarrhea and/or constipation, weight changes, sexual side effects including loss of libido, increased suicidal thoughts/behavio rs in children and young adults, and serotonin syndrome. Medication Management and Follow-Up - Plan: - Schedule follow-up appointments every 1-3 months to monitor the patient's response to the medication regimen. - Reinforce the importance of avoiding recreational drug use due to potential neurotoxicity and interactions with prescribed medications. 06/18/2024 Insomnia due to medical condition (ICD-10 - G47.01) Presently taking Sertraline 100 mg daily, 1. depression Continue to have depression and anxiety feel Sertraline works for her and will try to increase Sertraline 150 mg daily Sertraline 150 mg daily 2. Anxiety Sertraline 150 mg daily 3. Insomnia sleep hygiene 4. PTSD stable 5. Cannabis use Recommend decrease/stop cannabis use as it can negatively impact mood, motivation, anxiety, sleep, focus/concentrat ion/memory (vigilance, elasticity, processing and attention); can also contribute to development of psychosis. http_s://www.[facility].nih.gov/health /topics/mental-h ealth-medication s http_s://www.nam i.org/About-Ment al-Illness/Treat ments/Mental-Hea lth-Medications Recommend decrease/stop cannabis use as it may be negatively impacting mood, motivation, anxiety, sleep, focus; can also contribute to development of psychosis Cannabis/marijua information: http_s://sindi.ni h.gov/publicatio ns/drugfacts/can nabis-marijuana http_s://www.Baitianshi/can akdif-jrr-idsoqz ht-ykygqlcuj-xza d/ http_s://www.nam i.org/About-Ment al-Illness/Menta x-Kffcbj-Lrbsrzg ons http_s://psych[place]/deprriver bel/the-cogniti my-ygirckdt-dh-d epression#treatm ents http__s://www.ni .nih.gov/healt h/topics/mental- health-medicatio ns http__s://www.na mi.org/About-Men toño-Illness/Vicki tments/Mental-He alth-Medications educated on all medications, benefits, side effects and risk, and educated on depression, anxiety, and ADHD, mood d/o and educated on compliance of medications, metabolic and movement d/o education appointment's, continue therapy discussion with patient about course of treatment and patient instructions. education on serotonin syndrome educated on all medications, benefits, side effects and risk, and educated on depression, anxiety, and ADHD, mood d/o and educated on compliance of medications, metabolic and movement d/o education appointment is, continue therapy discussion with patient about course of treatment and patient instructions. education on serotonin syndrome SSRI/SNRI side effects discussed including but not limited to, gastric upset, nausea, vomiting, diarrhea and/or constipation, weight changes, sexual side effects including loss of libido, increased suicidal thoughts/behavio rs in children and young adults, and serotonin syndrome. Medication Management and Follow-Up - Plan: - Schedule follow-up appointments every 1-3 months to monitor the patient's response to the medication regimen. - Reinforce the importance of avoiding recreational drug use due to potential neurotoxicity and interactions with prescribed medications. 06/18/2024 Post-traumatic stress disorder, chronic (ICD-10 - F43.12) Presently taking Sertraline 100 mg daily, 1. depression Continue to have depression and anxiety feel Sertraline works for her and will try to increase Sertraline 150 mg daily Sertraline 150 mg daily 2. Anxiety Sertraline 150 mg daily 3. Insomnia sleep hygiene 4. PTSD stable 5. Cannabis use Recommend decrease/stop cannabis use as it can negatively impact mood, motivation, anxiety, sleep, focus/concentrat ion/memory (vigilance, elasticity, processing and attention); can also contribute to development of psychosis. http_s://www.nim h.nih.gov/health /topics/mental-h ealth-medication s http_s://www.nam i.org/About-Ment al-Illness/Treat ments/Mental-Hea lth-Medications Recommend decrease/stop cannabis use as it may be negatively impacting mood, motivation, anxiety, sleep, focus; can also contribute to development of psychosis Cannabis/marijua na information: http_s://sindi.ni h.gov/publicatio ns/drugfacts/can nabis-marijuana http_s://www.Baitianshi/can jaboc-gig-qzwkzc nc-begfzitsz-ohd d/ http_s://www.nam i.org/About-Ment al-Illness/Menta y-Qiiyza-Ewgpoda ons http_s://psychce [employer]/deprriver staples/the-cogniti mh-xzpjcimm-xv-d epression#treatm ents http__s://www.[facility].nih.gov/healt h/topics/mental- health-medicatio ns http__s://www.na mi.org/About-Men toño-Illness/Vicki tments/Mental-He alth-Medications educated on all medications, benefits, side effects and risk, and educated on depression, anxiety, and ADHD, mood d/o and educated on compliance of medications, metabolic and movement d/o education appointment's, continue therapy discussion with patient about course of treatment and patient instructions. education on serotonin syndrome educated on all medications, benefits, side effects and risk, and educated on depression, anxiety, and ADHD, mood d/o and educated on compliance of medications, metabolic and movement d/o education appointment is, continue therapy discussion with patient about course of treatment and patient instructions. education on serotonin syndrome SSRI/SNRI side effects discussed including but not limited to, gastric upset, nausea, vomiting, diarrhea and/or constipation, weight changes, sexual side effects including loss of libido, increased suicidal thoughts/behavio rs in children and young adults, and serotonin syndrome. Medication Management and Follow-Up - Plan: - Schedule follow-up appointments every 1-3 months to monitor the patient's response to the medication regimen. - Reinforce the importance of avoiding recreational drug use due to potential neurotoxicity and interactions with prescribed medications. 06/18/2024 Cannabis dependence, uncomplicated (ICD-10 - F12.20) Presently taking Sertraline 100 mg daily, 1. depression Continue to have depression and anxiety feel Sertraline works for her and will try to increase Sertraline 150 mg daily Sertraline 150 mg daily 2. Anxiety Sertraline 150 mg daily 3. Insomnia sleep hygiene 4. PTSD stable 5. Cannabis use Recommend decrease/stop cannabis use as it can negatively impact mood, motivation, anxiety, sleep, focus/concentrat ion/memory (vigilance, elasticity, processing and attention); can also contribute to development of psychosis. http_s://www.nim h.nih.gov/health /topics/mental-h ealth-medication s http_s://www.nam i.org/About-Ment al-Illness/Treat ments/Mental-Hea lth-Medications Recommend decrease/stop cannabis use as it may be negatively impacting mood, motivation, anxiety, sleep, focus; can also contribute to development of psychosis Cannabis/marijua na information: http_s://sindi.ni h.gov/publicatio ns/drugfacts/can nabis-marijuana http_s://www.[employer]/can fxwth-khf-dwcrem me-yzmcpikhy-mmr d/ http_s://www.nam i.org/About-Ment al-Illness/Menta w-Vyffyr-Rqzfaep ons http_s://psychce Baitianshi.com/deprriver bel/the-cogniti vj-cssynhmc-ub-d epression#treatm ents http__s://www.ni .nih.gov/healt h/topics/mental- health-medicatio ns http__s://www.na mi.org/About-Men toño-Illness/Vicki tments/Mental-He alth-Medications educated on all medications, benefits, side effects and risk, and educated on depression, anxiety, and ADHD, mood d/o and educated on compliance of medications, metabolic and movement d/o education appointment's, continue therapy discussion with patient about course of treatment and patient instructions. education on serotonin syndrome educated on all medications, benefits, side effects and risk, and educated on depression, anxiety, and ADHD, mood d/o and educated on compliance of medications, metabolic and movement d/o education appointment is, continue therapy discussion with patient about course of treatment and patient instructions. education on serotonin syndrome SSRI/SNRI side effects discussed including but not limited to, gastric upset, nausea, vomiting, diarrhea and/or constipation, weight changes, sexual side effects including loss of libido, increased suicidal thoughts/behavio rs in children and young adults, and serotonin syndrome. Medication Management and Follow-Up - Plan: - Schedule follow-up appointments every 1-3 months to monitor the patient's response to the medication regimen. - Reinforce the importance of avoiding recreational drug use due to potential neurotoxicity and interactions with prescribed medications. 06/18/2024 Primary hypertension (ICD-10 - I10) Presently taking Sertraline 100 mg daily, 1. depression Continue to have depression and anxiety feel Sertraline works for her and will try to increase Sertraline 150 mg daily Sertraline 150 mg daily 2. Anxiety Sertraline 150 mg daily 3. Insomnia sleep hygiene 4. PTSD stable 5. Cannabis use Recommend decrease/stop cannabis use as it can negatively impact mood, motivation, anxiety, sleep, focus/concentrat ion/memory (vigilance, elasticity, processing and attention); can also contribute to development of psychosis. http_s://www.nim h.nih.gov/health /topics/mental-h ealth-medication s http_s://www.nam i.org/About-Ment al-Illness/Treat ments/Mental-Hea lth-Medications Recommend decrease/stop cannabis use as it may be negatively impacting mood, motivation, anxiety, sleep, focus; can also contribute to development of psychosis Cannabis/marijua na information: http_s://sindi.ni h.gov/publicatio ns/drugfacts/can nabis-marijuana http_s://www.[employer]/can seaiu-wnf-xnmvnk he-hpunidbjy-fpm d/ http_s://www.nam i.org/About-Ment al-Illness/Menta g-Beorio-Uwrhqlw ons http_s://psychce [employer]/karl staples/the-cogniti cc-dzecmqnq-il-d epression#treatm ents http__s://www.ni .nih.gov/healt h/topics/mental- health-medicatio ns http__s://www.na mi.org/About-Men toño-Illness/Vicki tments/Mental-He alth-Medications educated on all medications, benefits, side effects and risk, and educated on depression, anxiety, and ADHD, mood d/o and educated on compliance of medications, metabolic and movement d/o education appointment's, continue therapy discussion with patient about course of treatment and patient instructions. education on serotonin syndrome educated on all medications, benefits, side effects and risk, and educated on depression, anxiety, and ADHD, mood d/o and educated on compliance of medications, metabolic and movement d/o education appointment is, continue therapy discussion with patient about course of treatment and patient instructions. education on serotonin syndrome SSRI/SNRI side effects discussed including but not limited to, gastric upset, nausea, vomiting, diarrhea and/or constipation, weight changes, sexual side effects including loss of libido, increased suicidal thoughts/behavio rs in children and young adults, and serotonin syndrome. Medication Management and Follow-Up - Plan: - Schedule follow-up appointments every 1-3 months to monitor the patient's response to the medication regimen. - Reinforce the importance of avoiding recreational drug use due to potential neurotoxicity and interactions with prescribed medications. Plan Of Treatment Pending Test Test Name Order Date UDT 06/18/2024 Next Appt Details Provider Name:Mini Bryant , 09/13/2024 01:15:00 PM, [address] [address], [facility] [address], [place], [address], Insurance Providers Payer Name Payer Address Payer Phone Subscriber Number Group Number Insured Name Patient Relationship to Insured Coverage Start Date Coverage End Date Medicare- [place] Medicare [address] [place] GALINDO [phone] [id number] SUNIL CANTRELL Self - patient is the insured [employer] Pos [address] [place] [address] [id number] EDGAR CANTRELL Spouse - patient is the spouse of the insured Medical (General) History Medical History History ICD Code Problems: Abnormal movement Cannabis dependence Chronic post-traumatic stress disorder Complicated grieving Generalized anxiety disorder Insomnia Long-term drug therapy Memory impairment Mild recurrent major depression Recurrent major depressive episodes, mod erate , Surgical History Surgery Date(Month/Year) Any surgical history Other 06/19/1999
--- OUTSIDE RECORDS SUMMARY | 2024-09-03 12:07 | XMS_ITS ---
Author Organization [facility] Address [facility]5 [facility] [address] [address] Care Team Providers Care Front Window Cashier Name Role Phone Carlos Swann DO Primary Care Provider Mini Madrigal Unavailable [phone] REASON FOR VISIT refill Social History Sex Assigned At : Social History Observation Description Sex Assigned At Female Encounters Encounter Location Date Provider Diagnosis [facility] [employer] [place] [address] [facility] [address] [address] 05/30/2024 Mini Bryant Plan Of Treatment Next Appt Details Provider Name:Mini Bryant , 09/13/2024 01:15:00 PM, [address], [facility] [address], [place], [address], Progress Notes * KAMARMEHDI SwansonADOB: (63 yo F)Acc No.[id number]:05/30/2024 Patient: SUNIL STEELE :1960 A ge:63 Y S ex:Female Address:[address], [place], [address] * true * Date: Generated for Printi ng/Faxing/eTransmitting on: 0 09/03/2024 12:06 PM CDT
--- OUTSIDE RECORDS SUMMARY | 2024-09-03 12:07 | XMS_ITS ---
Author Organization [facility] [employer] [facility] Address [facility] 162 [facility] 201 [place] [address] Care Team Providers Care Cart Driver Name Role Phone Carlos Swann DO Primary Care Provider Mini Madrigal Unavailable [phone] REASON FOR VISIT Update on medication Social History Sex Assigned At : Social History Observation Description Sex Assigned At Female Encounters Encounter Location Date Provider Diagnosis [facility] [employer] [place] [id number] [facility] 162 [facility] 201 [place] [address] 08/02/2024 Mini Bryant Major depressive disorder, recurrent, mild F33.0 Assessments Encounter Date Diagnosis (ICD Code) Assessment Notes Treatment Notes Treatment Clinical Notes Section Notes 08/02/2024 Major depressive disorder, recurrent, mild (ICD-10 - F33.0) Plan Of Treatment Medication Medication Name Sig Start Date Stop Date Notes Sertraline HCl 50 MG 1 tablet Orally Once a day 06/18/2024 Next Appt Details Provider Name:Mini Bryant , 09/13/2024 01:15:00 PM, [address], [facility] [address], [place], [address], Progress Notes * SCOTTIE CANTRELLB: (64 yo F)Acc No.[id number]:08/02/2024 Patient: SUNIL STEELE :1960 A ge:64 Y S ex:Female Address:[address] [place] [address] * Refills Stop Sertraline HCl Tablet, 50 MG, Orally, 1 tablet, Once a day * true * Date: Generated for Kaushik remy/Jenni/Yadira on: 0 09/03/2024 12:06 PM CDT
[2024-09-03 13:25] LABS: Basophils Absolute Auto 0.1 K/mm3 (0.0-0.1); Eosinophils Absolute Auto 0.3 K/mm3 (0-0.3); Hematocrit 48.4 % (37.0-47.0); Hemoglobin 16.3 g/dL (12.0-15.0); Immature Granulocyte Absolute 0.03 K/mm3 (0.00-0.031); Immature Granulocyte Percent A 0.4 % (0-0.5); Lymphocytes Percent Auto 23.2 % (18.3-44.2); Mean Corpuscular HGB Conc 33.7 g/dl (32-36); Mean Corpuscular Hemoglobin 32.3 pg (26-34); Mean Platelet Volume 8.9 fl (7.4-10.4); Monocytes Absolute Auto 0.6 K/mm3 (0.1-0.6); Monocytes Percent Auto 8.3 % (2.6-8.5); Neutrophils Absolute Auto 4.9 K/mm3 (1.3-6.7); Neutrophils Percent Auto 63.1 % (45.5-73.1); Platelet Count Result 302 k/mm3 (150-375); Red Blood Count 5.04 M/mm3 (4.2-5.4); White Blood Count 7.8 K/mm3 (4.5-10.0)
[2024-09-03 14:09] LABS: Alanine Aminotransferase 19 U/L (6-35); Albumin Level 4.4 g/dL (3.5-5.1); Alkaline Phosphatase 64 U/L (38-126); Anion Gap 12 mmol/L (4-12); Aspartate Amino Transferase 33 U/L (14-36); Bilirubin,Total 0.8 mg/dL (0.2-1.3); Blood Urea Nitrogen 14 mg/dL (7-17); Calcium 9.8 mg/dL (8.4-10.2); Carbon Dioxide 26 mmol/L (22-30); Chloride 101 mmol/L (98-107); Cholesterol 195 mg/dL (0-200); Estimated Glomerular Filt Rate > 60; Glucose 141 mg/dL (65-110); HDL Direct 76 mg/dL; Potassium 4.4 mmol/L (3.4-5.0); Sodium 139 mmol/L (137-145); Triglycerides 174 mg/dL (<150)
[2024-09-03 14:20] LABS: LDL Cholesterol Direct 87 mg/dL
[2024-09-03 14:22] LABS: Creatinine Urine 165.9 mg/dL
[2024-09-03 14:35] LABS: MALB Creatinine Ratio 7.1 mg/g (0-30); Microalbumin Urine Random 11.8 mg/L (0-16.7)
[2024-09-03 15:03] LABS: Hemoglobin A1C 5.6 % (<5.7)
== END 2024-09-03 10:43 | disposition home or self-care (01) ==
PROVIDERS: PCP Internal Medicine; Visit Provider Nurse Practitioner
DX: I63.9 Cerebral infarction, unspecified (principal); R73.03 Prediabetes; K51.20 Ulcerative (chronic) proctitis without complications; G47.61 Periodic limb movement disorder
CPT/HCPCS: 36415; 80053; 80061; 82043; 82728; 83036; 85025

== ENCOUNTER 2025-03-04 12:43 | Outpatient (CLI) | payer MEDICARE, SELFPAY ==
--- NOTE | ~2025-03-04 | CT_ITS ---
EXAMINATION:CT lung screening DATE: 03/04/2025 12:58 INDICATION: Nicotine dependence, unspecified, uncomplicated. TECHNIQUE: Computed tomography (CT) of the chest was performed without intravenous contrast. Automated exposure control and iterative reconstruction technique were employed. The dose-length product (DLP) was 248.56 mGy-cm. COMPARISON: None. FINDINGS: There is mild emphysema. There is mild atelectasis bilaterally. No pleural effusion. The heart size is normal. There are coronary artery calcifications. No pericardial effusion. There is severe cervical spondylosis and mild thoracic spondylosis. IMPRESSION: 1. Lung-RADS category 1: Negative. Continue annual screening with noncontrast low-dose chest CT in 12 months. Reviewed, dictated and finalized at location E. IMPRESSION: 1. Lung-RADS category 1: Negative. Continue annual screening with noncontrast l ow-dose chest CT in 12 months.
== END 2025-03-04 12:44 | disposition home or self-care (01) ==
LOC: MICIMG 12:44
PROVIDERS: PCP Internal Medicine; Visit Provider Nurse Practitioner
DX: Z12.2 Encounter for screening for malignant neoplasm of respiratory organs (principal); Z87.891 Personal history of nicotine dependence
CPT/HCPCS: 71271

== ENCOUNTER 2025-03-06 09:24 | Outpatient (CLI) | payer MEDICARE, SELFPAY ==
--- OUTSIDE RECORDS SUMMARY | 2024-09-13 08:15 | XMS_ITS ---
Author Organization [facility] [employer] [facility] Address [facility] 162 [facility] 201 [place] [address] Care Team Providers Care Spiral Gear Generator Name Role Phone Carlos Swann DO Primary Care Provider Mini Madrigal Unavailable [phone] Social History Sex Assigned At : Social History Observation Description Sex Assigned At Female Encounters Encounter Location Date Provider Diagnosis [address] [facility] [address] [place] [address] 09/13/2024 Mini Bryant Plan Of Treatment No Information Progress Notes * MEHDI CANTRELLALDAIRB: (64 yo F)Acc No.[id number]:09/13/2024 Patient: SUNIL STEELE Provider: RACHEL BRAN :1960 A ge:64 Y S ex:Female Date:09/13/2024 [facility] [facility] Pcp:Carlos Swann DO Billing Information: * Procedure Codes: * Electronic signature of RACHEL Lechuga on 03/06/2025 at 09:52 AM CDT Sign off status: Pending * Provider: RACHEL BRAN Date: 09/13/2024 Generated for Printi ng/Faxing/eTransmitting on: 0 03/06/2025 09:52 AM CDT
--- OUTSIDE RECORDS SUMMARY | 2025-03-06 09:52 | XMS_ITS | Clinical Summary ---
Author Organization [facility] Address [address] [place] [address] Care Team Providers Care Radiology Assistant Name Role Phone Unavailable Primary Care Provider Unavailabl e Social History Tobacco Use Types Packs/Day Years Used Date Smoking Tobacco: Never Assessed Comments Unknown Sex and Gender Information Value Date Recorded Sex Assigned at Not on file Legal Sex Female 4:19 PM TRANSLATION DIRECTOR Gender Identity Not on file Sexual Orientation Not on file Plan of Treatment Health Maintenance Due Date Last Done Comments Hepatitis C Virus (HCV) Screening 1960 TdaP Immunization 1960 Pap Smear 1982 Cervical Cancer Screening (CCS) 1991 HPV/Cotest 1991 Cologuard 2006 Colonoscopy 2006 Colorectal Cancer Screening 2006 Immunochemical Fecal Occult Blood 2006 Zoster Immunization (1 of 2) 2011 Pneumococcal Immunization (50+ years) (3 of 3 - PCV20 or PCV21) 04/15/2023 04/15/2018, 04/10/2017 SARS-COV-2 Immunization ( season) 2024 Influenza Immunization (#1) 2025 09/0 01/2020, 03/12/2019, 04/15/2018, Additional history exists Respiratory Syncytial Virus (RSV) Immunization (Adult) (1 - 1-dose 75+ series) 2036 Pneumococcal Immunization Combined Discontinued 04/15/2018, 04/10/2017 Hepatitis B Immunization Aged Out No longer eligible based on patient's age to complete this topic Human Papillomavirus (HPV) Immunization Aged Out No longer eligible based on patient's age to complete this topic Meningococcal Immunization (ACWY) Aged Out No longer eligible based on patient's age to complete this topic Rotavirus Immunization Aged Out No lo nger eligible based on patient's age to complete this topic
--- OUTSIDE RECORDS SUMMARY | 2025-03-06 09:52 | XMS_ITS | Clinical Summary ---
Author Organization [facility] [employer] Address [address] [facility] [place] [address] Care Team Providers Care Tavern Keeper Name Role Phone Donovan Patel MD Primary Care Provider [phone] Source Comments [employer],non-owned Affiliates and Associated Physician Practices is amultiple site organization consisting of ambulatory clinics and hospital sitesin [place], [place], [place] and [place]. This disclosure is being madepursuant to the Care Everywhere program and may not contain all information available regarding this patient. Last updated 18.[facility] Allergies No known active allergies Medications * Be aware that medications may not be up to date on this document. Alwaysverify current medications with the patient. mesalamine EC (LIALDA) 1.2 GM tablet Take [...] shower or bath daily 30 g 2 2 Active Active Problems Problem Noted Date Diagnosed [...] oz pur e alcohol) 1-2 x week Comments No Sex and Gender Information Value Date Recorded Sex Assigned at Not on file Legal Sex Female 6:19 AM OCULARIST Gender Identity Not on file Sexual Orientation Not on file Occupation Industry Job Start Date Job End Date unemployed Not on file Not on file Not on file Last Filed Vital Signs Vital Sign Reading Time Taken Comments Blood Pressure 118/84 06/04/2012 11:07 AM OCULARIST Pulse 80 06/04/2012 11:07 AM OCULARIST Temperature - - Respiratory Rate 16 06/04/2012 11:07 AM OCULARIST Oxygen Saturation - - Inhaled Oxygen Concentration - - Weight 105.7 kg (233 lb) 06/04/2012 11:07 AM OCULARIST Height 172.7 cm (5' 8) 06/04/2012 11:07 AM OCULARIST Body Mass Index 35.43 06/04/2012 11:07 AM OCULARIST Plan of Treatment Health Maintenance Due Date Last Done Comments COLOGUARD (AGES 45-75) - COLON CA SCREENING 1960 COLON MONITORING 1961 COLONOSCOPY - COLON CA SCREENING 1961 CT COLONOGRAPHY - COLON CA SCREENING 1960 Colorectal Cancer Screening 1960 FIT - COLON CA SCREENING 1960 FLEX SIG - COLON CA SCREENING 1961 LIPID TESTING 1961 HIV SCREENING 1976 HEPATITIS C SCREENING 06/11/1979 DTAP/TDAP/TD VACCINES (1 - Tdap) 1980 PNEUMOCOCCAL VACCINE 50+ (1 of 1 - PCV) 2011 ZOSTER VACCINE (1 of 2) 2011 MAMMOGRAM 06/05/2014 06/05/2012, 05/19, 05/31/2011, Additional history exists DEPRESSION SCREENING 06/19/2024 COVID-19 VACCINE ( - season) 2025 INFLUENZA VACCINE (#1) 2025 Respiratory Syncytial Virus (RSV) Vaccine Pt: or [...] Associated Diagnosis Comments MAMMOGRAPHY ORDER Routine 06/05/2012 from Last 3 Months or Most Recently Relevant to Health Maintenance Results * MAMMOGRAPHY ORDER (06/05/2012) Anatomical Region Laterality Modality Other Dali Anders SENIOR INFORMATION SYSTEMS ARCHITECT-SUPERVISOR DIE CASTING MAMMO ORDERABLES Fin al Result from Last 3 Months or Most Recently Relevant to Health Maintenance Insurance [place]IV[place] [id number] [facility] MEDICARE [facility] Care Teams Tavern Keeper Relationship Specialty Start Date End Date Donovan Patel MD [facility] [place] [address] PCP - General 04/10/18
--- OUTSIDE RECORDS SUMMARY | 2025-03-06 09:52 | XMS_ITS | Patient Health Record ---
Author Organization [facility] Address [address] [place] [address] Care Team Providers Care Creel Clerk Name Role Phone Carlos Swann DO Primary Care Provider Mini Madrigal Unavailable [phone] Allergies No Known Allergies Reason For Referral No Information Medications Medication SIG (Take, Route, Frequency, Duration) Notes Start Date End Date Status ProAir HFA 108 (90 Base) MCG/ACT Aerosol Solution Inhalation 09/07/2023 Active Repatha SureClick 140 mg/mL Solution Auto-injector Subcutaneous 09/07/2023 Active Fluticasone Propionate Diskus 50 MCG/ACT Aerosol Powder Breath Activated Inhalation *Reorder from [employer] for eRx and Interaction Alerts* 09/07/2023 Active Montelukast Sodium 10 MG Tablet Oral 09/07/2023 Active Ezetimibe 10 MG Tablet Oral 09/07/2023 Not-Taking Pantoprazole Sodium 20 MG Tablet Delayed Release Oral 09/07/2023 Active Cyclobenzaprine HCl 10 MG Tablet Oral 09/07/2023 Not-Taking Losartan Potassium 50 MG Tablet Oral 09/07/2023 Active VITAMIN D3 2,000 UNIT-FOLIC ACID 1 MG TABLET *Reorder from [employer] for eRx and Interaction Alerts* 09/07/2023 Active Sertraline HCl 100 MG Tablet 1 tablet Oral Once a day; Duration: 90 days Active amLODIPine Besylate 5 MG Tablet 1 tablet Oral Once a day 09/07/2023 Active Metoprolol Tartrate 50 MG Tablet Oral 09/07/2023 Active ALPRAZolam 0.25 MG Tablet Oral 09/07/2023 Not-Taking Darryl Mathew 100-62.5-25 mcg Aerosol Powder Breath Activated Inhalation *Pick strength-form from [employer] for eRX* 09/07/2023 Active Jardiance 10 MG Tablet Oral 09/07/2023 Not-Taking Immunizations Vaccine Route Administration Date Status Comme [...] unspecified formulation Unknown 04/06/2023 A dministered Novel Pcvzatpty-[id number], preservative free Unknown 04/12/2016 Administered Novel Sowodyxen-I9N2-18, preservative free Unknown 02/25/2020 Administered Pfizer Biontech [...] History Observation Description Sex Assigned At Female Social History Sexual History: Social Info Question Answer Notes Sexual History Had sex in the past 12 months (vaginal, oral, or anal)? Yes with Men only Social History Social Info Question Answer Notes Household: Marital Status: Number of Adults in household: 2 Level of Education: Professional Schools/Masters /PhD Household: Social Info Question Answer Notes Household Marital status: Number of adults in household: 2 Any household pets? Yes Drug/Alcohol: Social Info Question Answer Notes AUDIT-C (Standard) Did you have a drink containing alcohol in the past year? Yes How often did you have six or more drinks on one occasion in the past year? 2 to 3 times per week (3 points) How many drinks did you have on a typical day when you were drinking in the past year? 3 or 4 drinks (1 point) How often did you have a drink containing alcohol in the past year? 2 to 3 times a week (3 points) Points 7 Interpretation Positive Tobacco Use: Social Info Question Answer Notes Tobacco Control (Standard) Tobacco use: Former smoker Additional Findings: Tobacco non-user Current no nsmoker Additional Details Category Social Info Options Details Migrated Social History Migrated Social History Alcohol Intake: Moderate 07/19/2021,Tobacco Years: Former smoker 04/21/2020,Smoking Status: 41 05/15/2023 Drug/Alcohol: Do you smoke marijuana? Adm its, has medical card Do you drink alcohol? Yes Problems Problem Type SNOMED Code ICD Code Onset Dates Problem Status W/U Status Risk Notes Problem Cannabis dependence (70666278) Cannabis dependence, uncomplicated (F12.20) 08/24/19 23 Active confirmed Problem Mild recurrent major depression (07339220) Major depressive disorder, recurrent, mild (F33.0) 09/07/19 24 Active confirmed Problem Generalized anxiety disorder (24907447) Generalized anxiety disorder (F41.1) 09/07/19 24 Active confirmed Problem Posttraumatic stress disorder (19248368) Post-traumatic stress disorder, chronic (F43.12) 09/07/19 24 Active confirmed Problem Insomnia (129191739) Insomnia due to medical condition (G47.01) 09/07/19 24 Active confirmed Problem Screening for cardiovascular system disease (349107831) Encounter for screening for cardiovascular disorders (Z13.6) Active confirmed Problem Depression Screening (343152178) Encounter for screening for depression (Z13.31) Active confirmed Problem Primary hypertension (03423339) Primary hypertension (I10) Active confirmed Vital Signs Heart Rate 58 /min 09/27/2024 Height-cm 172.72 cm 09/27/2024 Blood pressure diastolic 85 mm Hg 09/27/2024 Weight-kg 105.23 kg 09/27/2024 Height 68.00 in 09/27/2024 Blood pressure systolic 122 mm Hg 09/27/2024 Weight 232 lbs 09/27/2024 BMI 35.27 kg/m2 09/27/2024 Encounters Encounter Location Date Provider Diagnosis [facility] [employer] [address] [address] 06/18/2024 Mini Bryant Major depressive disorder, recurrent, mild F33.0 ; Generalized anxiety disorder F41.1 ; Insomnia due to medical condition G47.01 ; Post-traumatic stress disorder, chronic F43.12 ; Cannabis dependence, uncomplicated F12.20 and Primary hypertension I10 [address] [address] 09/27/2024 Mini Bryant Encounter for screen ing for depression Z13.31 ; Major depressive disorder, recurrent, mild F33.0 ; Generalized anxiety disorder F41.1 ; Insomnia due to medical condition G47.01 ; Post-traumatic stress disorder, chronic F43.12 ; Cannabis dependence, uncomplicated F12.20 ; Primary hypertension I10 and Encounter for screening for cardiovascular disorders Z13.[address] [address] 05/30/2024 Mini Bryant [address] [address] 12/31/2024 Mini Theranna Major depressive disorder, recurrent, mild F33.[address] [address] 05/30/2024 Mini Theranna [address] [address] 08/02/2024 Mini Bryant Major depressive disorder, recurrent, mild F33.0 Assessments Encounter Date Diagnosis (ICD Code) Assessment Notes Treatment Notes Treatment Clinical Notes Section Notes 06/18/2024 Major depressive disorder, recurrent, mild (ICD-10 [...] Cannabis/marijua na information: http_s://sindi.ni h.gov/publicatio ns/drugfacts/can nabis-marijuana http_s://www.[facility]/can pjojx-jes-mlklqx dw-ydpmvrlyl-cxl d/ http_s://www.nam i.org/About-Ment al-Illness/Menta l-Ofzgxs-Vbawubg ons http_s://psychce [employer]/deprriver bel/the-cogniti lk-vrehdznt-zt-d epression#treatm ents http__s://www.ni .nih.gov/healt h/topics/mental- health-medicatio ns [...] Cannabis/marijua na information: http_s://sindi.ni h.gov/publicatio ns/drugfacts/can nabis-marijuana http_s://www.UCAN[employer]/can azsat-bzx-bsvgyu lm-bswsdwcdb-wxj d/ http_s://www.nam i.org/About-Ment al-Illness/Menta l-Rklrgb-Spfijgm ons http_s://psychce [employer].com/depres bel/the-cogniti av-yakoeaoa-gu-d epression#treatm ents http__s://www.ni .nih.gov/healt h/topics/mental- health-medicatio ns [...] potential neurotoxicity and interactions with prescribed medications. 08/02/2024 Major depressive disorder, recurrent, mild (ICD-10 - F33.0) 09/27/2024 Encounter for screening for depression (ICD-10 - Z13.31) Presently taking Sertraline 100 mg daily, 1. depression- Continue to have depression and anxiety feel Sertraline works for her Sertraline 100 mg daily hx Sertraline 150 mg dose - irritable 2. Anxiety Sertraline 100 mg daily 3. Insomnia sleep hygiene 4. [...] Cannabis/marijua na information: http_s://sindi.ni h.gov/publicatio ns/drugfacts/can nabis-marijuana http_s://www.UCAN.[employer]/can akrsv-ona-ivtyqc fb-rbtlrgihh-vlq d/ http_s://www.nam i.org/About-Ment al-Illness/Menta k-Slusrc-Otmgcbu ons http_s://psychce [employer].com/depres bel/the-cogniti bt-bsmikdoa-pz-d epression#treatm ents http__s://www.ni mh.nih.gov/healt h/topics/mental- health-medicatio ns http__s://www.na mi.org/About-Men toño-Illness/Vicki tments/Mental-He [...] potential neurotoxicity and interactions with prescribed medications. 12/31/2024 Major depressive disorder, recurrent, mild (ICD-10 - F33.0) 09/27/2024 Major depressive disorder, recurrent, mild (ICD-10 - F33.0) Presently taking Sertraline 100 mg daily, 1. depression- Continue to have depression and anxiety feel Sertraline works for her Sertraline 100 mg daily hx Sertraline 150 mg dose - irritable 2. Anxiety Sertraline 100 mg daily 3. Insomnia sleep hygiene 4. PTSD stable 5. Cannabis use Recommend decrease/stop cannabis use as it can negatively impact mood, motivation, anxiety, sleep, focus/concentrat ion/memory (vigilance, elasticity, processing and attention); can also contribute to development of psychosis. http_s://www.[facility].nih.gov/health /topics/mental-h ealth-medication s http_s://www.nam i.org/About-Ment al-Illness/Treat ments/Mental-Hea lth-Medications Recommend decrease/stop cannabis use as it may be negatively impacting mood, motivation, anxiety, sleep, focus; can also contribute to development of psychosis Cannabis/marijua na information: http_s://sindi. h.gov/publicatio ns/drugfacts/can nabis-marijuana http_s://www.[facility]/can meqwd-nco-farqiu fu-yzrudjrfz-drf d/ http_s://www.nam i.org/About-Ment al-Illness/Menta g-Fclfpx-Mdjxhnt ons http_s://psych[employer]ised/karl staples/the-cogniti op-yqymuvuh-qf-d epression#treatm ents http__s://www.[facility].nih.gov/healt h/topics/mental- health-medicatio ns http__s://www.na mi.org/About-Men [...] Cannabis/marijua na information: http_s://sindi.ni h.gov/publicatio ns/drugfacts/can nabis-marijuana http_s://www.add [employer]/can fzwgb-epx-jmgluz qh-hnhmmafcy-lmg d/ http_s://www.nam i.org/About-Ment al-Illness/Menta w-Qbjram-Bunfxkp ons http_s://psychce ntral.com/karl staples/the-cogniti vq-giyrehni-ug-d epression#treatm ents http__s://www.ni .nih.gov/healt h/topics/mental- health-medicatio ns [...] Cannabis/marijua na information: http_s://sindi.ni h.gov/publicatio ns/drugfacts/can nabis-marijuana http_s://www.add [employer]ag.[employer]/can loilz-rko-tujfme bs-cznmbrhzx-pql d/ http_s://www.nam i.org/About-Ment al-Illness/Menta t-Ugnbhl-Mkbiqos ons http_s://psychce [employer]/karl staples/the-cogniti da-eunogfoj-ev-d epression#treatm ents http__s://www.ni .nih.gov/healt h/topics/mental- health-medicatio ns [...] potential neurotoxicity and interactions with prescribed medications. 09/27/2024 Generalized anxiety disorder (ICD-10 - F41.1) Presently taking Sertraline 100 mg daily, 1. depression- Continue to have depression and anxiety feel Sertraline works for her Sertraline 100 mg daily hx Sertraline 150 mg dose - irritable 2. Anxiety Sertraline 100 mg daily 3. Insomnia sleep hygiene 4. PTSD stable 5. Cannabis use Recommend decrease/stop cannabis use as it can negatively impact mood, motivation, anxiety, sleep, focus/concentrat ion/memory (vigilance, elasticity, processing and attention); can also contribute to development of psychosis. http_s://www.[facility].nih.gov/health /topics/mental-h ealth-medication s http_s://www.nam i.org/About-Ment al-Illness/Treat ments/Mental-Hea lth-Medications Recommend decrease/stop cannabis use as it may be negatively impacting mood, motivation, anxiety, sleep, focus; can also contribute to development of psychosis Cannabis/marijua na information: http_s://sindi.ni h.gov/publicatio ns/drugfacts/can nabis-marijuana http_s://www.[facility]/can lrims-mwg-wtwxmf ub-sboypvsau-kfl d/ http_s://www.nam i.org/About-Ment al-Illness/Menta q-Zqginu-Twuozlm ons http_s://[employer]/depres bel/the-cogniti zg-fknvktjl-dp-d epression#treatm ents http__s://www.[facility].nih.gov/healt h/topics/mental- health-medicatio ns http__s://www.na mi.org/About-Men [...] potential neurotoxicity and interactions with prescribed medications. 09/27/2024 Insomnia due to medical condition (ICD-10 - G47.01) Presently taking Sertraline 100 mg daily, 1. depression- Continue to have depression and anxiety feel Sertraline works for her Sertraline 100 mg daily hx Sertraline 150 mg dose - irritable 2. Anxiety Sertraline 100 mg daily 3. Insomnia sleep hygiene 4. [...] Cannabis/marijua na information: http_s://sindi.ni h.gov/publicatio ns/drugfacts/can nabis-marijuana http_s://www.[facility]/can kavyz-joa-pohlvt kn-hplffwelj-ivh d/ http_s://www.nam i.org/About-Ment al-Illness/Menta s-Ttrcrj-Pistlmm ons http_s://psychce [employer]/karl staples/the-cogniti tf-nqeqmila-ls-d epression#treatm ents http__s://www.ni .nih.gov/healt h/topics/mental- health-medicatio ns [...] Cannabis/marijua na information: http_s://sindi.ni h.gov/publicatio ns/drugfacts/can nabis-marijuana http_s://www.add [employer]/can azlpn-rss-ohpuds km-mpnuaqiye-azq d/ http_s://www.nam i.org/About-Ment al-Illness/Menta l-Wyzkpu-Xxjlwqy ons http_s://psychce [employer].com/deprriver bel/the-cogniti qv-ynadxxib-cj-d epression#treatm ents http__s://www.[facility].nih.gov/healt h/topics/mental- health-medicatio ns http__s://www.na mi.org/About-Men [...] potential neurotoxicity and interactions with prescribed medications. 09/27/2024 Post-traumatic stress disorder, chronic (ICD-10 - F43.12) Presently taking Sertraline 100 mg daily, 1. depression- Continue to have depression and anxiety feel Sertraline works for her Sertraline 100 mg daily hx Sertraline 150 mg dose - irritable 2. Anxiety Sertraline 100 mg daily 3. Insomnia sleep hygiene 4. PTSD stable 5. Cannabis use Recommend decrease/stop cannabis use as it can negatively impact mood, motivation, anxiety, sleep, focus/concentrat ion/memory (vigilance, elasticity, processing and attention); can also contribute to development of psychosis. http_s://www.[facility].nih.gov/health /topics/mental-h ealth-medication s http_s://www.nam i.org/About-Ment al-Illness/Treat ments/Mental-Hea lth-Medications Recommend decrease/stop cannabis use as it may be negatively impacting mood, motivation, anxiety, sleep, focus; can also contribute to development of psychosis Cannabis/marijua na information: http_s://sindi.ni h.gov/publicatio ns/drugfacts/can nabis-marijuana http_s://www.UCAN.[employer]/can bfpmd-eck-snkyyy gf-cqmjlkcbe-jfn d/ http_s://www.nam i.org/About-Ment al-Illness/Menta u-Zdeaxi-Zujnjcf ons http_s://psychce [employer]/depres bel/the-cogniti zs-bushtxlx-xu-d epression#treatm ents http__s://www.ni mh.nih.gov/healt h/topics/mental- health-medicatio ns http__s://www.na mi.org/About-Men toño-Illness/Vicki tments/Mental-He [...] also contribute to development of psychosis. http_s://www.nim .nih.gov/health /topics/mental-h ealth-medication s http_s://www.nam i.org/About-Ment al-Illness/Treat ments/Mental-Hea lth-Medications Recommend decrease/stop cannabis use as it may be negatively impacting mood, motivation, anxiety, sleep, focus; can also contribute to development of psychosis Cannabis/marijua na information: http_s://sindi. h.gov/publicatio ns/drugfacts/can nabis-marijuana http_s://www.[facility]/can nphlu-xnq-ntopud dl-dzkdopzyi-vab d/ http_s://www.nam i.org/About-Ment al-Illness/Menta g-Bydohx-Juzblmo ons http_s://psychce [employer]/depres bel/the-cogniti nk-nnedhpud-ti-d epression#treatm ents http__s://www.[facility].nih.gov/healt h/topics/mental- health-medicatio ns http__s://www.na mi.org/About-Men [...] potential neurotoxicity and interactions with prescribed medications. 09/27/2024 Cannabis dependence, uncomplicated (ICD-10 - F12.20) Presently taking Sertraline 100 mg daily, 1. depression- Continue to have depression and anxiety feel Sertraline works for her Sertraline 100 mg daily hx Sertraline 150 mg dose - irritable 2. Anxiety Sertraline 100 mg daily 3. Insomnia sleep hygiene 4. PTSD stable 5. Cannabis use Recommend decrease/stop cannabis use as it can negatively impact mood, motivation, anxiety, sleep, focus/concentrat ion/memory (vigilance, elasticity, processing and attention); can also contribute to development of psychosis. http_s://www.nim .nih.gov/health /topics/mental-h ealth-medication s http_s://www.nam i.org/About-Ment al-Illness/Treat ments/Mental-Hea lth-Medications Recommend decrease/stop cannabis use as it may be negatively impacting mood, motivation, anxiety, sleep, focus; can also contribute to development of psychosis Cannabis/marijua na information: http_s://sindi. h.gov/publicatio ns/drugfacts/can nabis-marijuana http_s://www.[facility]/can zdbxf-iag-fqiohk ky-bqcrnadut-zhe d/ http_s://www.nam i.org/About-Ment al-Illness/Menta j-Vhxfvw-Wevjbue ons http_s://psychce ntral.com/depres ebl/the-cogniti ex-xspyxeru-zc-d epression#treatm ents http__s://www.[facility].nih.gov/healt h/topics/mental- health-medicatio ns http__s://www.na mi.org/About-Men [...] potential neurotoxicity and interactions with prescribed medications. 09/27/2024 Primary hypertension (ICD-10 - I10) Presently taking Sertraline 100 mg daily, 1. depression- Continue to have depression and anxiety feel Sertraline works for her Sertraline 100 mg daily hx Sertraline 150 mg dose - irritable 2. Anxiety Sertraline 100 mg daily 3. Insomnia sleep hygiene 4. [...] Cannabis/marijua na information: http_s://sindi.ni h.gov/publicatio ns/drugfacts/can nabis-marijuana http_s://www.[facility]/can tuypw-pqy-qnglvc iy-exalfxpwj-zid d/ http_s://www.nam i.org/About-Ment al-Illness/Menta f-Eciblt-Tmlpcjs ons http_s://psychce [employer]/karl staples/the-cogniti yj-wpvkgygv-fz-d epression#treatm ents http__s://www.[facility].nih.gov/healt h/topics/mental- health-medicatio ns http__s://www.na mi.org/About-Men [...] potential neurotoxicity and interactions with prescribed medications. 09/27/2024 Encounter for screening for cardiovascular disorders (ICD-10 - Z13.6) Presently taking Sertraline 100 mg daily, 1. depression- Continue to have depression and anxiety feel Sertraline works for her Sertraline 100 mg daily hx Sertraline 150 mg dose - irritable 2. Anxiety Sertraline 100 mg daily 3. Insomnia sleep hygiene 4. PTSD stable 5. Cannabis use Recommend decrease/stop cannabis use as it can negatively impact mood, motivation, anxiety, sleep, focus/concentrat ion/memory (vigilance, elasticity, processing and attention); can also contribute to development of psychosis. http_s://www.[facility].nih.gov/health /topics/mental-h ealth-medication s http_s://www.nam i.org/About-Ment al-Illness/Treat ments/Mental-Hea lth-Medications Recommend decrease/stop cannabis use as it may be negatively impacting mood, motivation, anxiety, sleep, focus; can also contribute to development of psychosis Cannabis/marijua na information: http_s://sindi.ni h.gov/publicatio ns/drugfacts/can nabis-marijuana http_s://www.[facility]/can grqhd-xse-fudaxg io-osqmtyxze-jaa d/ http_s://www.nam i.org/About-Ment al-Illness/Menta a-Ppggvh-Dnobjlv ons http_s://[employer]/depres bel/the-cogniti rc-muvbiauh-cz-d epression#treatm ents http__s://www.ni .nih.gov/healt h/topics/mental- health-medicatio ns [...] Test Test Name Order Date UDT 06/18/2024 Insurance Providers Payer Name Payer Address Payer Phone Subscriber Number Group Number Insured Name Patient Relationship to Insured Coverage Start Date Coverage End Date Medicare-I l Medicare [address] [place] [phone] [id number] SUNIL CANTRELL Self - patient is the insured [employer] [address] [address] [place] [address] [phone] [id number] SUNIL CANTRELL Self - patient is the insured Medical (General) History Medical History History ICD Code Problems: Abnormal movement Cannabis dependence Chronic post-traumatic stress disorder Complicated grieving Generalized anxiety disorder Insomnia Long-term drug therapy Memory impairment Mild recurrent major depression Recurrent major depressive episodes, mod erate , Surgical History Surgery Date(Month/Year) Any surgical history Other 06/19/1999
[2025-03-06 13:06] LABS: Alanine Aminotransferase 24 U/L (6-35); Albumin Level 4.2 g/dL (3.5-5.1); Alkaline Phosphatase 72 U/L (38-126); Anion Gap 5 mmol/L (4-12); Aspartate Amino Transferase 46 U/L (14-36); Bilirubin,Total 0.7 mg/dL (0.2-1.3); Blood Urea Nitrogen 15 mg/dL (7-17); Calcium 9.0 mg/dL (8.4-10.2); Carbon Dioxide 28 mmol/L (22-30); Chloride 103 mmol/L (98-107); Estimated Glomerular Filt Rate > 60; Glucose 139 mg/dL (65-110); Potassium 4.1 mmol/L (3.4-5.0); Sodium 136 mmol/L (137-145); Total Protein 7.6 g/dL (6.3-8.2)
[2025-03-06 13:29] LABS: Hemoglobin A1C 5.9 % (<5.7)
== END 2025-03-06 09:25 | disposition home or self-care (01) ==
PROVIDERS: PCP Internal Medicine; Visit Provider Nurse Practitioner
DX: R73.03 Prediabetes (principal); E55.9 Vitamin D deficiency, unspecified
CPT/HCPCS: 36415; 80053; 82306; 83036

== ENCOUNTER 2025-05-08 01:42 | Day surgery (SDC) | payer MEDICARE, SELFPAY ==
[2025-04-28 13:30] VITALS: BMI 34.2
--- OUTSIDE RECORDS SUMMARY | 2025-05-08 02:16 | XMS_ITS | Clinical Summary ---
Author Organization [facility] Address [address] [place] [address] Care Team Providers Care Wire Stretcher Name Role Phone Carlos Swann DO Primary Care Provider [phone] Allergies Active Allergy Reactions Criticality Noted Date Comments Codeine Stomach upset Reaction: Stomach Pain, Erythromycin Dizziness Reaction: Dizziness, Ezetimibe Active Problems Problem Noted Date Diagnosed Date Osteoarthritis of ankle 11/02/2013 Overview (09/21/2016): OSTEOARTHROS NOS-ANKLE Inflammatory polyarthropathy 11/02/2013 Overview (09/23/2016): INFLAMM POLYARTHROP NOS Encounters Date Type Department Care Team Description 04/10/2025 1:42 PM CDT - 04/10/2025 11:59 PM CDT Hospital Encounter [address] [address] Screening mammogram, encounter for Discharge Disposition: Discharge to home or self care from Last 3 Months Medical History Medical History Date Comments Hyperlipidemia Hyperlipidemia Hypertension Hypertension Adiposity Obesity Primary fibromyalgia syndrome Fi bromyalgia Crohn's disease (HCC) Crohn's di sease Family History Medical History Relation Name Comments Breast cancer Niece Cancer Other 1 Family history of Cancer -; Diabetes Other 2 Family history of Diabetes mellitus; Heart disease Other 3 Family history of Heart disease; Hypertension Other 4 Family history of Hypertension; Breast cancer Sister Relation Name Status Comments Niece Other 1 Other 2 Other 3 Other 4 Sister Social History Tobacco Use Types Packs/Day Years Used Date Smoking Tobacco: Never Assessed Alcohol Use Standard Drinks/Week Comments Yes 0 (1 standard drink = 0.6 oz pur e alcohol) Comments Unknown Sex and Gender Information Value Date Recorded Sex Assigned at Not on file 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 Gender Identity Not on file Sexual Orientation Not on file Obstetrics History Para Term AB IAB SAB Ectopic Multiple Livin g Live Births 5 4 Date Outcome GA Total Labor Labor/2nd/3rd Weight Sex Type Anes PTL Caro A1 A5 Name Clin Last Filed Vital Signs Vital Sign Reading Time Taken Comments Blood Pressure - - Pulse - - Temperature - - Respiratory Rate - - Oxygen Saturation - - Inhaled Oxygen Concentration - - Weight 102.1 kg (225 lb) 04/10/2025 2:32 PM CDT Height 172.7 cm (5' 8) 04/10/2025 2:32 PM CDT Body Mass Index 34.21 04/10/2025 2:32 PM CDT Plan of Treatment Health Maintenance Due Date Last Done Comments Cervical Cancer Screening 1961 Colon Cancer Screening-Colonoscopy 1961 Depression Screening 1961 Hepatitis C Screening 1961 Hepatitis B Screening 1979 Regular Well Visit/Exam 18-64 1979 Pneumococcal vaccine <65 (3 of 3 - PCV20 or PCV21) 04/15/2023 04/15/2018, 04/10/2017 Zoster Vaccine (2 of 2) 10/03/2023 08/08/2023 Breast Cancer Screening-Mammogram 04/10/2026 025 DTaP/Tdap/Td Vaccine (3 - Td or Tdap) 04/05/2033 04/05/2023, 03/16/2022 Covid-19 Vaccine Completed 02/21/2025, 04/2024, 04/05/2023, Additional history exists Influenza Vaccine Completed 02/21/2025, , 04/05/2023, Additional history exists Procedures Procedure Name Priority Date/Time Associated Diagnosis Comments SCREENING MAMMOGRAM BILATERAL W BASIL Schedule Routine, Read Routine (OP Routine) 04/10/2025 2:21 PM CDT Screening mammogram, encounter for from Last 3 Months Results * Screening Mammogram Bilateral W Basil (04/10/2025 2:21 PM CDT) Anatomical Region Laterality Modality Breast Bilateral Mammography Impressions 04/15/2025 3:26 PM CDT Bilateral No evidence of malignancy in either breast. OVERALL BI-RADS FINAL ASSESSMENT: 2 - Benign RECOMMENDATION: Recommend left breast annual screening mammography. Narrative 04/15/2025 3:26 PM CDT EXAMINATION: Screening Mammogram Bilateral W Basil: 04/10/2025 COMPARISON: Relevant prior studies available at the time of interpretation were reviewed, including the most recent mammogram on: 01/05/2024. TECHNIQUE: Mammography was performed with 2D and 3D digital breast tomosynthesis (DBT) images. CAD was utilized. BREAST PARENCHYMAL COMPOSITION: There are scattered areas of fibroglandular density. FINDINGS: Left 1) Mass: There is a mass seen in the upper outer quadrant of the left breast. Compared to the previous study, there are no significant changes. This finding is benign. There is no suspicious mass, calcification, or architectural distortion. Right There is no suspicious mass, calcification, or architectural distortion. us Self Screening Mammogram IMG MAMMO PROCEDURES Fi nal Result from Last 3 Months Insurance [employer] MEDICARE HMO [employer] MEDICARE HMO Care Teams Wire Stretcher Relationship Specialty Start Date End Date Carlos Swann DO [address] [facility] [address] [place] [address] PCP - General Internal Medicine 03/19/25
--- OUTSIDE RECORDS SUMMARY | 2025-05-08 02:16 | XMS_ITS | Clinical Summary ---
Author Organization [facility] Address [address] [place] [address] Care Team Providers Care Javascript Software Engineer Name Role Phone Donovan Patel MD Primary Care Provider [phone] Source Comments [employer]non-owned Affiliates and Associated Physician Practices is amultiple site organization consisting of ambulatory clinics and hospital sitesin [place], [place], [place]. This disclosure is being madepursuant to the Care Everywhere program and may not contain all information available regarding this patient. Last updated 18.[employer] Allergies No known active allergies Medications * [...] on file Legal Sex Female 6:19 AM PUMP ERECTOR Gender Identity Not on file Sexual Orientation Not on file Occupation Industry Job Start Date Job End Date unemployed Not on file Not on file Not on file Last Filed Vital Signs Vital Sign Reading Time Taken Comments Blood Pressure 118/84 06/04/2012 11:07 AM PUMP ERECTOR Pulse 80 06/04/2012 11:07 AM PUMP ERECTOR Temperature - - Respiratory Rate 16 06/04/2012 11:07 AM PUMP ERECTOR Oxygen Saturation - - Inhaled Oxygen Concentration - - Weight 105.7 kg (233 lb) 06/04/2012 11:07 AM PUMP ERECTOR Height 172.7 cm (5' 8) 06/04/2012 11:07 AM PUMP ERECTOR Body Mass Index 35.43 06/04/2012 11:07 AM PUMP ERECTOR Plan of Treatment Health Maintenance Due Date [...] 06/04/2015 06/04/2012, 05/19, 06/03/2011, Additional history exists Cervical Cancer Screening 06/04/2017 PAP with HPV 06/04/2017 06/04/2012 DEPRESSION SCREENING 06/19/2024 COVID-19 VACCINE ( - [...] AND CT/NG SCREENING Routine 06/04/2012 11:35 AM PUMP ERECTOR Well woman exam with routine gynecological exam PAP IG LB+HPV HR RFLX 16,18 Routine 06/04/2012 11:35 AM PUMP ERECTOR Well woman exam with routine gynecological exam from Last 3 Months or Most Recently Relevant to Health Maintenance Results * MAMMOGRAPHY ORDER (06/05/2012) Anatomical Region Laterality Modality Other us Dali Anders BOX LIDDER-EQUAL OPPORTUNITY SPECIALIST MAMMO ORDERABLES Fin al Result * PAP IGP CERVICAL CANCER AND CT/NG SCREENING (PO REF LAB) (06/04/2012 11:35 AM PUMP ERECTOR) Age Gdln ACOG Testing 30-65 [facility] ACCOUNT BILL MICROSCOPIC CYTOLOGIC EXAMINATION OF SMEAR OF SPECIMEN FROM FEMALE GENITAL TRACT PREPARED USING PAPANICOLAOU TECHNIQUE / Unknown 06/04/2012 11:35 AM PUMP ERECTOR 06/05/2012 2:21 AM PUMP ERECTOR Narrative [facility] ACCOUNT BILL - 06/08/2012 2:08 PM PUMP ERECTOR No. of containers..01 CYTYC Thin Prep Vial Resulting Agency Comment [facility] [place] [id number] Dali Anders BOX LIDDER-EQUAL OPPORTUNITY SPECIALIST LAB - PATHOLOGY/CYTO LOGY ORDERABLES Final Result [facility] ACCOUNT BILL [address] [place] [address] * PAP SMEAR IG HPV HR RFLX 16/18 (PO REF LAB) (06/04/2012 11:35 AM PUMP ERECTOR) Diagnosis [facility] ACCOUNT BILL Comment:NEGATIVE FOR INTRAEP ITHELIAL LESION AND MALIGNANCY. Specimen Adequacy [facility] ACCOUNT BILL Comment: Satisfactory for evaluation. Endocervical and/or squamous metaplastic cells (endocervical component) are present. 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 [facility] ACCOUNT BILL Note [facility] ACCOUNT BILL Comment: The Pap smear is a screening test designed to aid in the detection of premalignant and malignant conditions of the uterine cervix. It is not a diagnostic procedure and should not be used as the sole means of detecting cervical cancer. Both false-positive and false-negative reports do occur. . IGLBP CPT Code Automation [facility] ACCOUNT BILL Comment: This liquid based ThinPrep(R) pap test was screened with the use of an image guided system. Human papillomavirus High Risk Negative Negative [facility] ACCOUNT BILL Comment: This high-risk HPV test detects thirteen high-risk types (16/18/31/33/35/39/45/51/52/56/58/59/68) without differentiation. . MICROSCOPIC CYTOLOGIC EXAMINATION OF SMEAR OF SPECIMEN FROM FEMALE GENITAL TRACT PREPARED USING PAPANICOLAOU TECHNIQUE / Unknown 06/04/2012 11:35 AM PUMP ERECTOR 06/05/2012 2:21 AM PUMP ERECTOR Narrative [facility] ACCOUNT BILL - 06/08/2012 2:08 PM PUMP ERECTOR No. of containers..01 CYTYC Thin Prep Vial Resulting Agency Comment [facility] [address] [facility] [place] [address] [id number] Dali Anders BOX LIDDER-EQUAL OPPORTUNITY SPECIALIST LAB - PATHOLOGY/CYTO LOGY ORDERABLES Final Result [facility] ACCOUNT BILL [address] [place] [address] from Last 3 Months or Most Recently Relevant to Health Maintenance Insurance [facility] MEDICARE [facility] [place] [id number] Care Teams Javascript Software Engineer Relationship Specialty Start Date End Date Donovan Patel MD [facility] [place] [address] PCP - General 04/10/18
--- OUTSIDE RECORDS SUMMARY | 2025-05-08 02:16 | XMS_ITS | Clinical Summary ---
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 PIGEON SETTER Gender Identity Not on file Sexual Orientation Not on file Plan of Treatment Health Maintenance Due Date Last Done Comments Hepatitis C Virus (HCV) Screening 1961 TdaP Immunization 1961 Varicella Immunization (1 of 2 - 13+ 2-dose series) 1974 Pap Smear 1982 Cervical Cancer Screening (CCS) 1991 HPV/Cotest 1991 Cologuard 2006 Colonoscopy 2006 Colorectal Cancer Screening 2006 Immunochemical Fecal Occult Blood 2006 Zoster Immunization (1 of 2) 2011 Pneumococcal Immunization (50+ years) (3 of 3 - PCV20 or PCV21) 04/15/2023 04/15/2018, 04/10/2017 Influenza Immunization (#1) 2025 09/0 01/2020, 03/12/2019, 04/15/2018, Additional history exists SARS-COV-2 Immunization ( - 2024- season) 2025 Respiratory Syncytial Virus (RSV) Immunization (Adult) (1 [...]
[2025-05-08 10:22] VITALS: BP 145/96; PULSE 72; RESP 18; TEMP 35.9; O2SAT 96; BMI 34.4
[2025-05-08] MEDS: LACTATED RINGERS 1,000 ML 150 ML IV CONT (10:30)
--- NOTE | 2025-05-08 10:58 | WPDANESEPPF ---
Anes - Initial Pre Proc Eval Procedure: Operation Date: 05/08/25 11:30 Proposed Procedures p Screening Colonoscopy - Chris Ferrell MD Date/Time: 05/08/25 10:58 Surgeon: Chris Ferrell MD Pre Op Diagnosis: Screening Patient Data Age: 64 Gender: F Height: 1.73 m Weight: 102.8 kg Last Vital Signs Temp 96.7 F L 05/08/25 10:22 Pulse 72 05/08/25 10:22 Resp 18 05/08/25 10:22 BP 145/96 H 05/08/25 10:22 Pulse Ox 96 05/08/25 10:22 O2 Del Method Room Air 05/08/25 10:22 Allergies Allergy/AdvReac Type Severity Reaction Status Date / Time codeine Allergy Unknown AGITATION Verified 05/08/25 10:18 Sulfa (Sulfonamide Allergy Unknown DIZZY/LIGHT Verified 05/08/25 10:18 Antibiotics) HEADED Home Medications ?Medication ?Instructions ?Recorded ?Confirmed ?Type aspirin 81 mg tablet,delayed 81 mg PO DAILY 04/22/20 05/08/25 History release (Adult Low Dose Aspirin) cholecalciferol (vitamin D3) 250 250 mcg PO DAILY #90 caps 04/17/23 05/08/25 Rx mcg (10,000 unit) capsule sertraline 100 mg tablet 100 mg PO DAILY 03/13/24 05/08/25 History APAP #1 ea 04/24/24 03/14/25 Rx albuterol sulfate 90 mcg/actuation 2 puff inhalation Q4-6H PRN 11/19/24 04/28/25 Rx aerosol inhaler (Ventolin HFA) shortness of breath or wheezing #18 grams montelukast 10 mg tablet See Rx Instructions .Route 02/03/25 05/08/25 Rx .COMPLEX #90 tabs metoprolol tartrate 50 mg tablet See Rx Instructions .Route 03/03/25 05/08/25 Rx .COMPLEX #180 tabs omega-3 acid ethyl esters 1 cap PO DAILY 03/14/25 05/08/25 History losartan 50 mg tablet See Rx Instructions .Route 03/17/25 05/08/25 Rx .COMPLEX #90 tabs pantoprazole 20 mg tablet,delayed See Rx Instructions .Route 03/17/25 05/08/25 Rx release .COMPLEX #90 tabs amlodipine 5 mg tablet 5 mg PO DAILY #90 tabs 04/21/25 05/08/25 Rx fluticasone fur. 100 mcg-umeclid See Rx Instructions .Route 05/07/25 05/08/25 Rx 62.5 mcg-vilant 25 mcg .COMPLEX #60 ea inhalat.powder (Trelegy Ellipta) Patient hx anesthesia problems: none Family hx anesthesia problems: none Results Review: All pre-operative results and documents have been reviewed as part of the pre-operative evaluation. [facility] Past Medical History Medical History CVA (cerebral vascular accident) Essential hypertension Ulcerative proctitis GERD (gastroesophageal reflux disease) Post-menopausal Depression Anxiety E coli infection 2012 Crohn disease Fibromyalgia Hypercalcemia Prediabetes Hypertension COPD (chronic obstructive pulmonary disease) Surgical History Surgical History H/O tubal ligation 1990 Family History Family History Mother Diabetes mellitus CAD (coronary artery disease) Sibling Hypertension Diabetes mellitus Breast cancer sister-68 Father Hypertension Cancer Social History Social History Social History: Caffeine-very little Smoking packs per day: 0.5 Smoking cigarettes per day: 10.0 Years smoked: 49 Smoking pack-years: 24.50 Smoking status: Former smoker Smoking end date: 06/19/19 Alcohol intake: current Alcohol use details: Pt occasionally drinks Substance use: current Substance use type: marijuana Last use: 05/03/19 Do You Feel Safe in your Home?: Yes Lack of Transportation: No Lack of Food: Never True Current Housing: I Have Housing Concerned About Future Housing: No Difficulty Paying Gas/Electric Bills: No Difficulty Paying for Meds: No Currently Unemployed: No Education: Trade/Vocational Certificate Difficulty w/ Childcare or Family Care: No Living arrangements: with family Spiritual care concerns: No Anes - Eval Final PreProcedure Day of Procedure 05/08/25 10:58 Patient weight: obese Lungs: normal air movement Airway: Mallampati scale class II and special considerations (Missing upper R teeth. ) Neurological: alert and oriented Last oral intake: >/= 8 hours ASA classification: III Emergent: no Anesthetic plan: proceed Anesthesia type and monitoring: general GIVS and standard monitoring Results Review: All pre-operative results and documents have been reviewed as part of the pre-operative evaluation. HTN, hyperlipidemia, remote hx of CVA without deficits, pt has fibromyalgia. Pt denies CESAR despite in hx. Informed Consent: The patient's anesthetic plan and its attendant risks and benefits were discussed with the patient/family/POA. Questions were solicited and answers provided to the satisfaction of the patient/family/POA.
--- NOTE | 2025-05-08 11:26 | PM.IMHP ---
H&P: HPI History of Present Illness Date/Time: 05/08/25 11:26 Chief Complaint: Diarrhea Narrative: Patient has been diagnosed with inflammatory bowel disease of undetermined phenotype years ago, initially she was given the diagnosis of Crohn's disease, but in her colonoscopy 7 years ago, he had ulcerative proctitis. Currently she is not receiving any specific treatment and is experiencing diarrhea 80% of the time. She is referred for colonoscopy today. Review of Systems Review of Systems: All systems reviewed & are unremarkable except as noted in HPI and below COUNTS INCLUDE 234 BEDS AT THE [facility] Past Medical History Medical History CVA (cerebral vascular accident) Essential hypertension Ulcerative proctitis GERD (gastroesophageal reflux disease) Post-menopausal Depression Anxiety E coli infection 2012 Crohn disease Fibromyalgia Hypercalcemia Prediabetes Hypertension COPD (chronic obstructive pulmonary disease) Surgical History Surgical History H/O tubal ligation 1990 Family History Family History Mother Diabetes mellitus CAD (coronary artery disease) Sibling Hypertension Diabetes mellitus Breast cancer sister-68 Father Hypertension Cancer Social History Social History Social History: Caffeine-very little Smoking packs per day: 0.5 Smoking cigarettes per day: 10.0 Years smoked: 49 Smoking pack-years: 24.50 Smoking status: Former smoker Smoking end date: 06/19/19 Alcohol intake: current Alcohol use details: Pt occasionally drinks Substance use: current Substance use type: marijuana Last use: 05/03/19 Do You Feel Safe in your Home?: Yes Lack of Transportation: No Lack of Food: Never True Current Housing: I Have Housing Concerned About Future Housing: No Difficulty Paying Gas/Electric Bills: No Difficulty Paying for Meds: No Currently Unemployed: No Education: Trade/Vocational Certificate Difficulty w/ Childcare or Family Care: No Living arrangements: with family Spiritual care concerns: No Meds Home Medications and Allergies Home Medications ?Medication ?Instructions ?Recorded ?Confirmed ?Type aspirin 81 mg tablet,delayed 81 mg PO DAILY 04/22/20 05/08/25 History release (Adult Low Dose Aspirin) cholecalciferol (vitamin D3) 250 250 mcg PO DAILY #90 caps 04/17/23 05/08/25 Rx mcg (10,000 unit) capsule sertraline 100 mg tablet 100 mg PO DAILY 03/13/24 05/08/25 History APAP #1 ea 04/24/24 03/14/25 Rx albuterol sulfate 90 mcg/actuation 2 puff inhalation Q4-6H PRN 11/19/24 04/28/25 Rx aerosol inhaler (Ventolin HFA) shortness of breath or wheezing #18 grams montelukast 10 mg tablet See Rx Instructions .Route 02/03/25 05/08/25 Rx .COMPLEX #90 tabs metoprolol tartrate 50 mg tablet See Rx Instructions .Route 03/03/25 05/08/25 Rx .COMPLEX #180 tabs omega-3 acid ethyl esters 1 cap PO DAILY 03/14/25 05/08/25 History losartan 50 mg tablet See Rx Instructions .Route 03/17/25 05/08/25 Rx .COMPLEX #90 tabs pantoprazole 20 mg tablet,delayed See Rx Instructions .Route 03/17/25 05/08/25 Rx release .COMPLEX #90 tabs amlodipine 5 mg tablet 5 mg PO DAILY #90 tabs 04/21/25 05/08/25 Rx fluticasone fur. 100 mcg-umeclid See Rx Instructions .Route 05/07/25 05/08/25 Rx 62.5 mcg-vilant 25 mcg .COMPLEX #60 ea inhalat.powder (Trelegy Ellipta) Allergies Allergy/AdvReac Type Severity Reaction Status Date / Time codeine Allergy Unknown AGITATION Verified 05/08/25 10:18 Sulfa (Sulfonamide Allergy Unknown DIZZY/LIGHT Verified 05/08/25 10:18 Antibiotics) HEADED Vital Signs Vital Signs - 24 hr 05/08/25 10:22 Temperature 96.7 F L Pulse Rate 72 Respiratory Rate 18 Blood Pressure 145/96 H Pulse Oximetry 96 Oxygen Delivery Room Air Exam Const: General: cooperative and healthy appearing Resp: Effort & Inspection: normal respiratory effort and able to speak in complete sentences Auscultation: clear to auscultation bilaterally Cardio: Rate: regular rate Rhythm: regular rhythm GI: Inspection: normal to inspection GI Palp: No No hepatosplenomegaly present Auscultation: normal bowel sounds Rectal Exam: deferred Skin: General skin exam: normal color Psych: Appearance: grossly normal Mental Status: mental status grossly normal Assessment and Plan Assessment and plan (1) Diarrhea: Code(s): R19.7 - Diarrhea, unspecified Status: Acute Assessment and Plan: The patient is deemed a good candidate for the procedure. Consent signed. Will proceed.
--- NOTE | 2025-05-08 11:52 | S_PTH ---
PATIENT: Precious Person LOC: [facility]#:[id number] AGE/SX: 64/F ROOM: RE05/08/[address]: Chris Ferrell MD : 1960 BED: DIS: 05/08/2025 SPEC #: [id number] RECD: 05/08/25 13:17 STATUS: LASHAY REQ #: [id number] RUDY: 05/08/25 11:[address]: Chris Ferrell DEPT: [facility] Surgical RECD BY: Charleen Solano ENTERED: 05/08/25 13:19 SP TYPE: Surgical OTHR DR: Carlos Swann, Tissues: A - Small Bowel Bx B - Colon Biopsy C - Colon Biopsy D - Colon Biopsy E - Colon Biopsy F - Colon Biopsy G - Colon Biopsy Procedures: Hematoxylin and Eosin Stain Gross and Microscopic Level 4
[2025-05-08 11:54] VITALS: BP 107/67; PULSE 68; RESP 19; O2SAT 96
[2025-05-08 12:04] VITALS: BP 119/76; PULSE 60; RESP 22; O2SAT 100
[2025-05-08 12:14] VITALS: BP 148/90; PULSE 62; RESP 21; O2SAT 100
== END 2025-05-08 12:32 | disposition home or self-care (01) ==
PROVIDERS: PCP Internal Medicine; Referring Provider Nurse Practitioner; Visit Provider Internal Medicine Gastroenterology
PROC: 0DJD8ZZ Inspection of Lower Intestinal Tract, Via Natural or Artificial Opening Endoscopic (ICD-10-PCS; CPT 45378; principal; 2025-05-08 11:30)
DX: K52.9 Noninfective gastroenteritis and colitis, unspecified (principal); K57.30 Diverticulosis of large intestine without perforation or abscess without bleeding; K64.8 Other hemorrhoids; Z87.891 Personal history of nicotine dependence; E66.9 Obesity, unspecified; Z68.34 Body mass index [BMI] 34.0-34.9, adult
CPT/HCPCS: 45380; 88305; J2003; J2704; J7120